=== PATIENT | male | born 1955 | race Caucasian/White ===

== ENCOUNTER 2016-06-18 09:29 | Inpatient (IN) | payer OTHER, MEDICARE ==
[2016-06-18] VITALS (20 sets, daily range): BP systolic 99–158; BP diastolic 50–92; PULSE 60–104; RESP 17–22; TEMP 97.8–98.1; O2SAT 95–100
[~2016-06-18] VITALS: Ht 190.5 cm; Wt 86.2 kg
[~2016-06-18 09:29] MED LIST: ATOR80TA PO; CYCL-36 PO; EZET10 PO; METO25CR PO; ST JTAB PO; ULTR50TA PO; VIAG100T PO
[2016-06-18] MEDS ORDERED: SODIUM CHLOR 0.9% 1000 ML INJ 1,000 ML IV ONE (09:39)
[2016-06-18] MEDS ORDERED: HEPARIN SODIUM - IV 10,000 UNITS/10 ML VIAL IV STA (09:39)
[2016-06-18] MEDS: ASPIRIN 81 MG CHEW TAB PO STA ×2 (09:39→09:47)
[2016-06-18] MEDS ORDERED: NITROGLYCERIN 0.4 MG SL 25 TABS/BTL SL STA (09:39)
[2016-06-18] MEDS ORDERED: ASPIRIN 81 MG CHEW TAB PO STA (09:39)
[2016-06-18] MEDS ORDERED: ASPIRIN 81 MG CHEW TAB ONE (09:41)
[2016-06-18] MEDS ORDERED: ONDANSETRON HCL 4 MG/2 ML VIAL ONE (09:41)
[2016-06-18] MEDS ORDERED: NITROGLYCERIN-DEXTROSE INJ 250 ML IV SCH (09:45)
[2016-06-18] MEDS ORDERED: SODIUM CHLORIDE 0.9% FLUSH 5 ML FLUSH IVF PRN ×2 (09:45→11:15)
[2016-06-18] MEDS ORDERED: MORPHINE SULFATE 4 MG/ML INJ IV PUSH ONE (09:45)
[2016-06-18] MEDS ORDERED: ONDANSETRON HCL 4 MG/2 ML VIAL IV PUSH ONE (09:45)
[2016-06-18] MEDS ORDERED: HEPARIN-NS/PF INJ 500 ML ONE (09:53)
[2016-06-18 09:55] LABS: I-STAT POTASSIUM 4.2 MMOL/L (3.5-4.9)
--- NOTE | 2016-06-18 09:56 | PD ---
HPI Chief Complaint: Chest Pain Time Seen by Provider: 09:39 Travel History International Travel<30 days: No Contact w/Intl Traveler<30days: No Traveled to known affect area: No History of Present Illness HPI 61-year-old male came to the emergency room with history of chest pain radiating to his back that started last night. Patient says he moved over the weekend and thought he had pulled a muscle. Last night he broke into a cold sweat. No history of vomiting or diarrhea. He looks quite uncomfortable. Patient has history of coronary artery disease in the past. He says he had a cardiac catheter done last year June in [place] which was normal. Patient is a smoker currently. [facility] Past Medical History Narrative Medical List of his past medical history as reviewed from the nursing note. Heart Rhythm Problems: No Cancer: No Cardiovascular Problems: Yes High Cholesterol: Yes Chest Pain: No Congestive Heart Failure: No Coronary Artery Disease: Yes Diminished Hearing: No Endocrine: No Genitourinary: No Immune Disorder: No Musculoskeletal: No Neurologic: No Psychiatric: No Reproductive: No Respiratory: No Past Surgical History Cardiac Surgery: Yes (OPEN HEART 99) Joint Replacement: Yes (LEFT ANKLE REPLACEMENT) Social History Alcohol Use: Yes (DAILY) Tobacco Use: Yes (2 PACK) Substance Use: No Allergies-Medications (Allergen,Severity, Reaction): Coded Allergies: No Known Allergies (Unverified , 06/18/16) Comments No known drug allergies. Reported Meds & Prescriptions Reported Meds & Active Scripts Active Reported Zetia (Ezetimibe) 10 Mg Tab 10 Mg PO DAILY Flexeril (Cyclobenzaprine HCl) 10 Mg Tab 10 Mg PO TID PRN Atorvastatin (Atorvastatin Calcium) 80 Mg Tab 80 Mg PO HS Ultram (Tramadol HCl) 50 Mg Tab 50 Mg PO TID PRN Viagra (Sildenafil Citrate) 100 Mg Tab 100 Mg PO DAILY PRN Aleve (Naproxen Sodium) 220 Mg Tab 220 Mg PO DIRECTED PRN Aspirin 81 Mg Tabdr 81 Mg PO DAILY Narrative Medication List of his home medications reviewed from the nursing note. Review of Systems Except as stated in HPI: all other systems reviewed are Neg Physical Exam Narrative GENERAL: Awake, alert, significant distress SKIN: Warm and dry. HEAD: Atraumatic. Normocephalic. EYES: Pupils equal and round. No scleral icterus. No injection or drainage. ENT: No nasal bleeding or discharge. Mucous membranes pink and moist. NECK: Trachea midline. No JVD. CARDIOVASCULAR: Regular rate and rhythm. No murmur appreciated. RESPIRATORY: No accessory muscle use. Clear to auscultation. Breath sounds equal bilaterally. GASTROINTESTINAL: Abdomen soft, non-tender, nondistended. Hepatic and splenic margins not palpable. MUSCULOSKELETAL: No obvious deformities. No clubbing. No cyanosis. No edema. NEUROLOGICAL: Awake and alert. No obvious cranial nerve deficits. Motor grossly within normal limits. Normal speech. PSYCHIATRIC: Appropriate mood and affect; insight and judgment normal. Data Data Last Documented VS Vital Signs Date Time Temp Pulse Resp B/P Pulse Ox O2 Delivery O2 Flow Rate FiO2 06/18/16 09:49 70 20 156/88 100 Room Air 06/18/16 09:49 97.8 06/18/16 09:40 2.0 Orders Troponin I (06/18/16 09:39) Ckmb (Isoenzyme) Profile (06/18/16 09:39) Complete Blood Count With Diff (06/18/16 09:39) I-Stat Profile (06/18/16 09:39) I-Stat Creatinine (06/18/16 09:39) Calcium (06/18/16 09:39) Magnesium (Mg) (06/18/16 09:39) Prothrombin Time / Inr (Pt) (06/18/16 09:39) Act Partial Throm Time (Ptt) (06/18/16 09:39) B-Type Natriuretic Peptide (06/18/16 09:39) Chest, Single Ap (06/18/16 09:39) Electrocardiogram (06/18/16 09:39) Oxygen Administration (06/18/16 09:39) Iv Access Insert/Monitor (06/18/16 09:39) Oximetry (06/18/16 09:39) Sodium Chlor 0.9% 1000 Ml Inj (Ns 1000 M (06/18/16 09:39) Sodium Chloride 0.9% Flush (Ns Flush) (06/18/16 09:45) Aspirin Chew (Aspirin Chew) (06/18/16 09:39) Nitroglycerin Sl (Nitrostat Sl) (06/18/16 09:39) Nitroglycerin-Dextrose Inj (Nitroglyceri (06/18/16 09:45) Heparin Inj (Heparin Inj) (06/18/16 09:39) Aspirin Chew (Aspirin Chew) (06/18/16 09:39) Morphine Inj (Morphine Inj) (06/18/16 09:45) Ondansetron Inj (Zofran Inj) (06/18/16 09:45) Ondansetron Inj (Zofran Inj) (06/18/16 09:41) Aspirin Chew (Aspirin Chew) (06/18/16 09:41) Admit Order (Ed Use Only) (06/18/16 09:47) CKMB (06/18/16 09:42) CKMB% (06/18/16 09:42) Labs Laboratory Tests Test 06/18/16 09:42 White Blood Count 9.6 TH/MM3 Red Blood Count 4.59 MIL/MM3 Hemoglobin 16.1 GM/DL Bedside Hemoglobin 16.3 G/DL Hematocrit 47.0 % Bedside Hematocrit 48.0 % Mean Corpuscular Volume 102.3 FL Mean Corpuscular Hemoglobin 35.1 PG Mean Corpuscular Hemoglobin 34.3 % Concent Red Cell Distribution Width 14.1 % Platelet Count 237 TH/MM3 Mean Platelet Volume 8.4 FL Neutrophils (%) (Auto) 87.3 % Lymphocytes (%) (Auto) 8.8 % Monocytes (%) (Auto) 2.8 % Eosinophils (%) (Auto) 0.2 % Basophils (%) (Auto) 0.9 % Neutrophils # (Auto) 8.4 TH/MM3 Lymphocytes # (Auto) 0.8 TH/MM3 Monocytes # (Auto) 0.3 TH/MM3 Eosinophils # (Auto) 0.0 TH/MM3 Basophils # (Auto) 0.1 TH/MM3 CBC Comment DIFF FINAL Differential Comment Prothrombin Time 10.9 SEC Prothromb Time International 1.0 RATIO Ratio Activated Partial 27.3 SEC Thromboplast Time Bedside Sodium 139 MMOL/L Bedside Potassium 4.2 MMOL/L Bedside Chloride 100 MMOL/L Bedside Blood Urea Nitrogen 10 MG/DL Bedside Creatinine 0.8 MG/DL Bedside Glucose 122 MG/DL Calcium Level 8.8 MG/DL Magnesium Level 1.8 MG/DL Total Creatine Kinase 339 U/L Creatine Kinase MB 21.7 NG/ML Creatine Kinase MB % 6.4 % Troponin I 2.71 NG/ML B-Type Natriuretic Peptide 60 PG/ML MDM Medical Decision Making Medical Screen Exam Complete: Yes Emergency Medical Condition: Yes Medical Record Reviewed: Yes Interpretation(s) Normal sinus rhythm, normal axis, inferior ST elevations, reciprocal depressions in 1 and aVL. Heart rate of 65 bpm. Differential Diagnosis STEMI Narrative Course 9:55 AM patient was given 5000 heparin bolus, 2 baby aspirins and morphine. Dr. Madrigal came in to see the patient as soon as STEMI alert was called and I spoke with him. Patient is being taken to the catheter lab for emergent cardiac catheterization. He remains hemodynamically stable currently. Patient is on Viagra daily and hence nitroglycerin was withheld. Procedures EKG Prior to Arrival: Yes Physician Communication Physician Communication Dr. aMdrigal Diagnosis Primary Impression: ST elevation myocardial infarction (STEMI) of inferior wall Additional Impression: ST elevation myocardial infarction (STEMI) of true posterior wall Admitting Information Admitting Physician Requests: Admit Scripts Spironolactone (Aldactone)25 Mg Tab25 Mg PO DAILY #30 TAB Ref 0 Prov:Lady Ramirez MD 06/20/16 Ipratropium HFA 12.9 GM Inh (Atrovent HFA 12.9 GM Inh)17 Mcg/Act Aer2 Puff INH TID #1 INHALER Ref 0 Prov:Lady Ramirez MD 06/20/16 Albuterol 18 GM Inh (Ventolin Hfa 18 GM Inh)90 Mcg/Act Aer2 Puff INH Q4-6H PRN ( SHORTNESS OF BREATH) #1 INHALER Ref 0 Prov:Lady Ramirez MD 06/20/16 Budesonide-Formoterol Inh (Symbicort Inh)160-4.5 Mcg/Act Aero1 Puff INH Q12HR # 1 INHALER Ref 0 Prov:Lady Ramirez MD 06/20/16 Azithromycin (Zithromax Z-Italo)250 Mg [id number] Mg PO DIRECTED #1 DSPK Ref 0 500 MG (2 tabs) day 1, then 1 tab days 2-5. Prov:Lady Ramirez MD 06/20/16 Lorazepam (Ativan)0.5 Mg Tab0.5 Mg PO BID PRN (ANXIETY AND/OR AGITATION) #10 TAB Ref 0 Prov:Lady Ramirez MD 06/19/16 Lisinopril 5 Mg Tab5 Mg PO DAILY #30 TAB Prov:Lady Ramirez MD 06/19/16 Metoprolol Tartrate 25 Mg Tab12.5 Mg PO BID #60 TAB Prov:Lady Ramirez MD 06/19/16 Ticagrelor (Brilinta)90 Mg Tab90 Mg PO BID #60 TAB Prov:Lady Ramirez MD 06/19/16 Denis Thorpe MD Jun 18, 2016 09:56
[2016-06-18 09:57] LABS: AUTOMATED NEUTROPHIL # 8.4 TH/MM3 (1.8-7.7); BASOPHIL # 0.1 TH/MM3 (0-0.2); BASOPHIL % 0.9 % (0.0-2.0); EOSINOPHIL % 0.2 % (0.0-4.0); HEMO FLAGS DIFF FINAL; LYMPH % 8.8 % (9.0-44.0); LYMPHOCYTE # 0.8 TH/MM3 (1.0-4.8); MEAN CELL VOLUME 102.3 FL (80.0-100.0); MEAN CORPUSCULAR HEMOGLOBIN 35.1 PG (27.0-34.0); MEAN CORPUSCULAR HGB CONC 34.3 % (32.0-36.0); MONO % 2.8 % (0.0-8.0); NEUT % 87.3 % (16.0-70.0); PLATELET COUNT 237 TH/MM3 (150-450); RED BLOOD COUNT 4.59 MIL/MM3 (4.50-5.90); RED CELL DISTRIBUTION WIDTH 14.1 % (11.6-17.2); WHITE BLOOD COUNT 9.6 TH/MM3 (4.0-11.0)
--- NOTE | 2016-06-18 10:04 | RADRPT ---
EXAM DATE/TIME: 06/18/2016 09:49 [place] COMPARISON: No previous studies available for comparison. INDICATIONS: Chest pains with shortness of breath. MEDICAL HISTORY: Myocardial infarction. SURGICAL HISTORY: CABG. Coronary artery stent. ENCOUNTER: Initial ACUITY: 1 day PAIN SCORE: 9/10 LOCATION: Bilateral chest FINDINGS: Median sternotomy wires are noted status post cardiac surgery. The heart is normal. The pulmonary v ascular pattern is normal. The lungs are clear. CONCLUSION: 1. No acute cardiopulmonary disease. Rohit Alvarez MD on June 18, 2016 at 9:58 Board Certified Radiologist. This report was verified electronically.
[2016-06-18 10:07] LABS: APTT (PATIENT) 27.3 SEC (24.3-30.1); PROTHROMBIN TIME - PATIENT 10.9 SEC (9.8-11.6)
[2016-06-18] MEDS ORDERED: MIDAZOLAM HCL 2 MG/2 ML VIAL ONE (10:09)
[2016-06-18 10:14] LABS: MAGNESIUM 1.8 MG/DL (1.5-2.5)
[2016-06-18] MEDS ORDERED: ULTR50TA5 PO (10:14)
[2016-06-18] MEDS ORDERED: ASPI1TAB69 PO (10:14)
[2016-06-18] MEDS ORDERED: NAPR220T95 PO (10:14)
[2016-06-18] MEDS ORDERED: ATOR1TAB18 PO (10:14)
[2016-06-18] MEDS ORDERED: VIAG100T PO (10:14)
[2016-06-18] MEDS ORDERED: CYCL1TAB29 PO (10:14)
[2016-06-18] MEDS ORDERED: ZETI10TA5 PO (10:14)
[2016-06-18] MEDS ORDERED: METO25TA6 PO (10:14)
[2016-06-18] MEDS ORDERED: HEPARIN SODIUM - IV 10,000 UNITS/10 ML VIAL ONE (10:21)
[2016-06-18 10:33] LABS: CKMB 21.7 NG/ML (0.5-3.6)
--- NOTE | 2016-06-18 10:37 | MB ---
cc: GIDEON POLO MD DATE OF 1955. DATE OF CONSULTATION June 18, [address] elevation ND. HISTORY OF PRESENT ILLNESS A 61-year-old male with past medical history significant for alcohol abuse, smoker, CAD status post CABG in 1998, CLAY to the LAD, who presented to the hospital with chest pain radiating to his back for days and EKG showing inferior STEMI. Reports that he is having some chest pain for a couple of days and thought he pulled a muscle. However, yesterday he was broke out in sweats. Denies nausea or vomiting, and this chest pain became worse. It was associated with some shortness of breath and weakness. He denies fevers, chills, nausea, vomiting, diarrhea, constipation, bleeding issues or noncompliant with medications. REVIEW OF SYSTEMS Negative except for what is mentioned in the HPI. PAST MEDICAL/SURGICAL HISTORY 1. CAD status post bypass surgery in 1998. 2. Left ankle replacement. FAMILY HISTORY Noncontributory. SOCIAL HISTORY He is drinker and he is a smoker. No illicit drug use. ALLERGIES No known drug allergies. HOME MEDICATIONS 1. Metoprolol. 2. Ultram. 3. Flexeril. 4. Atorvastatin. 5. Zetia. 6. Viagra. 7. Aspirin 81 mg. PHYSICAL EXAMINATION Vital Signs: Temperature of 97.8, respiratory rate of 20, heart rate of 70, blood pressure 166/88 and pulse oximetry 100% on room air. General: He is awake, alert, oriented and having chest pain. Neck: No JVD, no carotid bruits. Heart: Normal S1 and S2. Regular rate and rhythm. No murmurs, rubs or gallops. Lungs: Clear to auscultation bilaterally. No wheezes or rhonchi, no rales. Abdomen: Soft, nontender, nondistended. Positive bowel sounds. Extremities: No cyanosis, no edema and pulses throughout. LABORATORY DATA Hemoglobin of 16, platelet count of 237. INR is pending. Chemistries show a sodium of 139, potassium 4.2, chloride 100, BUN of 10 and creatinine of 0.8. Troponins are pending as well as BNP. CHEST X-RAY Shows a mid-sternotomy and no acute cardiopulmonary process. EKG Shows sinus rhythm with ST elevation in leads II, III and aVF suggesting injury with reciprocal changes in V2 and V1. ASSESSMENT AND PLAN A 61-year-old male with known coronary artery disease, presented to the emergency department with STEMI. He complains currently still with chest pain. He remains hemodynamically stable. He was started on heparin drip in the emergency department and given aspirin. Recommendation will be to take him immediately to the cardiac cardiac cath rn for invasive management of his STEMI, primary PCI. The risks and benefits of left heart cath and intervention has been explained to the patient including but not limited to stroke and renal failure, dissection, neurovascular trauma, emergent bypass surgery and the patient is willing to proceed. Thank you for the opportunity to participate in the care of this patient. We will follow with you. Further therapy to determined. MD MJ Cam/SSB /10:04 AM /10:28 AM MTDEwa
[2016-06-18] MEDS ORDERED: TICAGRELOR 90 MG TAB PO ONE ×2 (10:47→11:15)
[2016-06-18] MEDS ORDERED: PHENYLEPH/NS 1000 MCG/10 ML SYR ONE (10:53)
[2016-06-18] MEDS ORDERED: SODIUM CHLOR 0.9% 1000 ML INJ 1,000 ML IV SCH (11:02)
[2016-06-18] MEDS ORDERED: ATROPINE SULFATE 1 MG/ML VIAL IV PRN (11:15)
[2016-06-18] MEDS ORDERED: ONDANSETRON HCL 4 MG/2 ML VIAL IV PRN (11:15)
[2016-06-18] MEDS ORDERED: MISC INFORMATION XX ONE (11:15)
[2016-06-18] MEDS ORDERED: PILL SPLITTER OTHER PRN (11:30)
--- NOTE | 2016-06-18 12:09 | MA ---
cc: GIDEON POLO DATE: 06/18/2016 PROCEDURES PERFORMED 1. Left heart catheterization. 2. Selective right and left coronary angiography. 3. CLAY angiography. 4. Successful PCI to mid right coronary artery. INDICATION STEMI. APPROACH Right transfemoral. PROCEDURE DESCRIPTION Consent signed. The patient was brought into the cardiac laboratory analyst in a fasting state. Using 1% lidocaine for local anesthesia and a micropuncture kit, a 6 Citizen [place] sheath was inserted into the right common femoral artery. Right common femoral artery angiography was performed to confirm position of the sheath. Selective CLAY and LAD angiography was performed with a SOUMYA catheter with 5- Citizen [place] JL4 and SOUMYA diagnostic catheters. Angiography was performed in multiple views. The vessels were patent and collaterals were going to the right coronary artery. Then selective right coronary angiography was performed with a JR4 guide showing 100% thrombotic occlusion of the mid right coronary artery. The vessel was wire with a Choice PT extra-support wire anchored distally. This was followed by pre-dilation of the lesion with a 2.5 x 12 balloon and aspiration thrombectomy with successful reperfusion of the vessel and BROOKS-III flow. Then we deployed a 3.0 x 28 drug-eluting stent followed by 3.5 x 8 drug- eluting stent in the proximal portion. The stents were post dilated with a noncompliant 3.5 x 15 balloon to high atmospheres. Final angiographic views revealed good stent apposition and expansion with BROOKS- III flow and zero residual stenosis. The patient tolerated the procedure well without complications. Estimated blood loss less than 50 cc. Total contrast used 100 cc. The right groin access site was closed with a Perclose device. RESULTS HEMODYNAMICS The left ventricular pressure was 151/5 with an LVEDP of 29. The aortic pressure was 151/80 with a mean of 102. There was no gradient on pullback from the left ventricle to the aorta. CORONARY ANGIOGRAPHY 1. Left Main: The patient had separate ostia of the left circumflex and the LAD. 2. The left circumflex artery is diffusely diseased and small, however, has BROOKS -III flow and nonobstructive coronary artery disease. There is a prominent OM1 and a small OM2 which ae patent with BROOKS 3 flow. 3. The LAD has a 100% occlusion in its midportion and is filling distally by the CLAY to the LAD. The first diagonal is patent. 4. The CLAY to the LAD is patent, has BROOKS-III flow touching the LAD in its midsegment. 5. The right coronary artery is a dominant vessel. It is 100% occluded in its midsegment, thrombotic occlusion. CONCLUSIONS 1. STEMI, culprit lesion right coronary artery. 2. Successful percutaneous coronary intervention / drug-eluting stent to mid right coronary artery. 3. Elevated LVEDP. 4. Patent CLAY to LAD RECOMMENDATIONS 1. Dual-antiplatelet agent with aspirin and Brilinta. 2. Optimize aggressive medical management for CAD which includes statin, ES inhibitor, beta avila and long-acting nitrate. 3. Lifestyle changes. The patient should stop smoking and decrease alcohol intake. 4. Groin site care and post-cath care. 5. 2 Decho before discharge to assess LV function MD MJ Cam/LUIS ARMANDO /11:08 AM /11:50 AM JOANN
--- NOTE | 2016-06-18 14:20 | EKG ---
Date Performed: 06/18/2016 Time Performed: 09:37:24 PTAGE: 61 years EKG: Sinus rhythm WITH MARKED SINUS ARRHYTHMIA BORDERLINE RIGHT AXIS DEVIATION MODERATE INTRAVENTRICULAR CONDUCTION DE LAY MARKED ST ELEVATION, CONSIDER INFERIOR INJURY ACUTE [place] Compared to PREVIOUS TRACING inferior/posterior injury pattern is now present PREVIOUS TRACIN12/08 22.24 DOCTOR: Rehan Fairchild Interpretating Date/Time 06/18/2016 14:18:15
[2016-06-18] MEDS ORDERED: ACETAMINOPHEN 325 MG TAB PO PRN (15:15)
[2016-06-18] MEDS: ATORVASTATIN 80 MG TAB PO SCH (22:23)
[2016-06-18] MEDS: METOPROLOL TARTRATE 25 MG TAB PO SCH (22:24)
[2016-06-18] MEDS: SODIUM CHLORIDE 0.9% FLUSH 5 ML FLUSH IVF SCH (22:24)
[2016-06-19] VITALS (26 sets, daily range): BP systolic 102–141; BP diastolic 52–72; PULSE 54–80; RESP 14–18; TEMP 97.5–99.2; O2SAT 96–98
[2016-06-19 03:42] LABS: AUTOMATED NEUTROPHIL # 9.7 TH/MM3 (1.8-7.7); BASOPHIL # 0.1 TH/MM3 (0-0.2); EOSINOPHIL # 0.1 TH/MM3 (0-0.4); EOSINOPHIL % 0.6 % (0.0-4.0); HEMATOCRIT 42.3 % (39.0-51.0); HEMO FLAGS DIFF FINAL; LYMPH % 14.3 % (9.0-44.0); LYMPHOCYTE # 1.8 TH/MM3 (1.0-4.8); MEAN CELL VOLUME 102.1 FL (80.0-100.0); MEAN CORPUSCULAR HEMOGLOBIN 34.3 PG (27.0-34.0); MEAN CORPUSCULAR HGB CONC 33.6 % (32.0-36.0); MONO % 8.2 % (0.0-8.0); NEUT % 75.9 % (16.0-70.0); PLATELET COUNT 198 TH/MM3 (150-450); RED BLOOD COUNT 4.15 MIL/MM3 (4.50-5.90); WHITE BLOOD COUNT 12.7 TH/MM3 (4.0-11.0)
[2016-06-19 04:15] LABS: HDL CHOLESTEROL 50.7 MG/DL (40.0-60.0)
[2016-06-19] MEDS: ASPIRIN 81 MG CHEW TAB PO SCH (08:28)
[2016-06-19] MEDS: LISINOPRIL 5 MG TAB PO SCH (08:28)
[2016-06-19] MEDS: METOPROLOL TARTRATE 25 MG TAB PO SCH ×2 (08:29→22:11)
[2016-06-19] MEDS: TICAGRELOR 90 MG TAB PO SCH ×2 (08:29→22:11)
[2016-06-19] MEDS: SODIUM CHLORIDE 0.9% FLUSH 5 ML FLUSH IVF SCH ×2 (08:29→22:11)
[2016-06-19] MEDS ORDERED: RESP: ALBUTEROL 2.5 MG/IPRATROPIUM 0.5 MG NEB (PRN) NEB (09:15)
[2016-06-19] MEDS ORDERED: LISI-519 PO (12:22)
[2016-06-19] MEDS ORDERED: METO25TA3 PO (12:22)
[2016-06-19] MEDS ORDERED: BRIL90TA PO (12:22)
--- NOTE | 2016-06-19 12:22 | HHI.DCPOC ---
Discharge Care Plan Goals to Promote Your Health * To prevent worsening of your condition and complications * To maintain your health at the optimal level Directions to Meet Your Goals Take your medications as prescribed Follow your dietary instruction Follow activity as directed Keep your appointments as scheduled Take your immunizations and boosters as scheduled If your symptoms worsen call your PCP, if no PCP go to Urgent Care Center or Emergency Room Smoking is Dangerous to Your Health. Avoid second hand smoke Call the 24-hour hour crisis hotline for domestic abuse at Lady Ramirez MD Jun 19, 2016 12:22
--- NOTE | 2016-06-19 12:24 | HHI.HP ---
[facility] Unknown Admission Diagnosis acute inferior, posterior wall STEMI Diagnoses: Chief Complaint: chest pain Travel History International Travel<30 Days: No Contact w/Intl Traveler <30 Da: No Traveled to Known Affected Are: No History of Present Illness 61-year-old male came to the emergency room with history of chest pain radiating to his back that started last night. Patient says he moved over the weekend and thought he had pulled a muscle. Last night he broke into a cold sweat. No history of vomiting or diarrhea. He looks quite uncomfortable. Patient has history of coronary artery disease in the past. He says he had a cardiac catheter done last year June in [place] which was normal. Patient is a smoker currently. Patient went for cardiac cath with stent 06/[address] Madrigal. Groin without hematoma he is ambulating in the room without any problems. No chest pain . No sob, n/v/d /c. No tremors. Review of Systems Constitutional: DENIES: Fever, Chills, Change in appetite Endocrine: DENIES: Heat/cold intolerance Eyes: DENIES: Blurred vision, Diplopia, Eye inflammation, Eye pain, Vision loss , Photosensitivity, Double Vision Ears, nose, mouth, throat: DENIES: Tinnitus, Hearing loss, Vertigo, Nasal discharge, Oral lesions, Throat pain, Hoarseness, Ear Pain, Running Nose, Epistaxis, Sinus Pain, Toothache, Odynophagia Respiratory: DENIES: Apneas, Cough, Snoring, Wheezing, Hemoptysis, Sputum production, Shortness of breath Cardiovascular: DENIES: Chest pain, Palpitations, Syncope, Dyspnea on Exertion , PND, Lower Extremity Edema, Orthopnea, Claudication Gastrointestinal: DENIES: Abdominal pain, Black stools, Bloody stools, Constipation, Diarrhea, Nausea, Vomiting, Difficulty Swallowing, Anorexia Musculoskeletal: DENIES: Joint pain, Muscle aches, Stiffness, Joint Swelling, Back pain, Neck pain Integumentary: DENIES: Rash Neurologic: DENIES: Abnormal gait, Headache, Localized weakness, Paresthesias, Seizures, Speech Problems, Tremor, Poor Balance Psychiatric: COMPLAINS OF: Anxiety Past Family Social History Past Medical History HTN Past Surgical History None Reported Medications Last Impressions Chest X-Ray 06/18/16 0939 Signed Impressions: Service Date/Time: Saturday, June 18, 2016 09:49 - CONCLUSION: 1. No acute cardiopulmonary disease. Rohit Alvarez MD Allergies: Coded Allergies: No Known Allergies (Unverified , 06/18/16) Family History Parents healthy Social History Smokes 1 PPD since young age EtOH 2-3 beers every other say No illicit drug use Physical Exam Vital Signs Vital Signs Date Time Temp Pulse Resp B/P Pulse Ox O2 Delivery O2 Flow Rate FiO2 06/19/16 10:00 70 06/19/16 09:00 60 06/19/16 08:00 63 06/19/16 08:00 98.1 63 14 122/71 96 06/19/16 07:00 68 06/19/16 05:00 55 06/19/16 04:00 97.7 58 18 105/72 96 06/19/16 04:00 58 06/19/16 03:00 80 06/19/16 02:00 54 06/19/16 01:00 54 06/19/16 00:00 61 06/18/16 23:45 97.8 73 18 111/59 96 06/18/16 23:00 80 06/18/16 22:00 61 06/18/16 21:00 62 06/18/16 20:00 61 06/18/16 19:05 97.8 60 18 99/50 96 06/18/16 19:00 80 06/18/16 18:00 64 06/18/16 17:00 88 06/18/16 16:17 98.0 62 18 112/66 95 06/18/16 16:00 61 06/18/16 15:00 80 06/18/16 14:00 78 06/18/16 13:00 74 06/18/16 12:45 80 Physical Exam GENERAL: This is a well-nourished, well-developed patient, in no apparent distress. SKIN: No rashes, ecchymoses or lesions. Cool and dry. HEAD: Atraumatic. Normocephalic. No temporal or scalp tenderness. EYES: Pupils equal round and reactive. Extraocular motions intact. No scleral icterus. No injection or drainage. ENT: Nose without bleeding, purulent drainage or septal hematoma. Throat without erythema, tonsillar hypertrophy or exudate. Uvula midline. Airway patent. NECK: Trachea midline. No JVD or lymphadenopathy. Supple, nontender, no meningeal signs. CARDIOVASCULAR: Regular rate and rhythm without murmurs, gallops, or rubs. RESPIRATORY: Clear to auscultation. Breath sounds equal bilaterally. No wheezes , rales, or rhonchi. GASTROINTESTINAL: Abdomen soft, non-tender, nondistended. No hepato-splenomegaly , or palpable masses. No guarding. MUSCULOSKELETAL: Right grioun no hematoma, dressing C/D/I. Extremities without clubbing, cyanosis, or edema. No joint tenderness, effusion, or edema noted. No calf tenderness. Negative Homans sign bilaterally. NEUROLOGICAL: Awake and alert. Cranial nerves II through XII intact. Motor and sensory grossly within normal limits. Five out of 5 muscle strength in all muscle groups. Normal speech. Laboratory Laboratory Tests Test 06/19/16 03:24 White Blood Count 12.7 Red Blood Count 4.15 Hemoglobin 14.2 Hematocrit 42.3 Mean Corpuscular Volume 102.1 Mean Corpuscular Hemoglobin 34.3 Mean Corpuscular Hemoglobin 33.6 Concent Red Cell Distribution Width 14.0 Platelet Count 198 Mean Platelet Volume 8.7 Neutrophils (%) (Auto) 75.9 Lymphocytes (%) (Auto) 14.3 Monocytes (%) (Auto) 8.2 Eosinophils (%) (Auto) 0.6 Basophils (%) (Auto) 1.0 Neutrophils # (Auto) 9.7 Lymphocytes # (Auto) 1.8 Monocytes # (Auto) 1.0 Eosinophils # (Auto) 0.1 Basophils # (Auto) 0.1 CBC Comment DIFF FINAL Differential Comment Triglycerides Level 132 Cholesterol Level 142 LDL Cholesterol 65 HDL Cholesterol 50.7 Cholesterol/HDL Ratio 2.80 Result Diagram: 06/19/16 0324 Imaging Last Impressions Chest X-Ray 06/18/16 0939 Signed Impressions: Service Date/Time: Saturday, June 18, 2016 09:49 - CONCLUSION: 1. No acute cardiopulmonary disease. Rohit Alvarez MD Assessment and Plan Assessment and Plan NSTEMI s/p PCI/ANTONIA to RCA 06/18/[address] Madrigal. Doing well no complaints. Cont DAPT with ASA and Brillinta Cont BB, ACEi, Statin Check 2D ECHO Encourage ambulation and incentive spirometry Cardiology is following Dr Madrigal Tobacco use, EtOH use. Counselled. Ativan for withdrawal symptoms. Chronic medical problems stable. Restart home meds. Code Status full Discussed Condition With patient, nurse Physician Certification 2 Midnight Certification Type: Admission for Inpatient Services Order for Inpatient Services The services are ordered in accordance with Medicare regulations or non- Medicare payer requirements, as applicable. In the case of services not specified as inpatient-only, they are appropriately provided as inpatient services in accordance with the 2-midnight benchmark. Estimated LOS (days): 3 days is the estimated time the patient will need to remain in the hospital, assuming treatment plan goals are met and no additional complications. Post-Hospital Plan: Home Lady Ramirez MD Jun 19, 2016 12:24
[2016-06-19] MEDS ORDERED: LORA-392 PO (12:26)
[2016-06-19] MEDS ORDERED: LORazepam 0.5 MG TAB PO PRN (12:30)
--- NOTE | 2016-06-19 12:52 | PD.CARD.PN ---
Subjective Subjective Remarks no overnight events no complaints ambulating without difficulty Objective Medications Current Medications Medications (Trade) Dose Ordered Sig/Jose Route Start Time Stop Time Status Last Admin (Nitroglycerin-Dextrose Inj) 250 ml @ 0 mls/hr TITRATE IV 06/18/16 09:45 (NS Flush) 2 ml UNSCH PRN IVF 06/18/16 11:15 (NS Flush) 2 ml BID IVF 06/18/16 21:00 06/19/16 08:29 (Aspirin Chew) 81 mg DAILY PO 06/19/16 09:00 06/19/16 08:28 (Brilinta) 90 mg BID PO 06/19/16 09:00 06/19/16 08:29 (Atropine Inj) 0.5 mg UNSCH PRN IV 06/18/16 11:15 (Zofran Inj) 4 mg Q4H PRN IV 06/18/16 11:15 (Lopressor) 12.5 mg BID PO 06/18/16 21:00 06/19/16 08:29 (Prinivil) 5 mg DAILY PO 06/19/16 09:00 06/19/16 08:28 (Lipitor) 80 mg HS PO 06/18/16 21:00 06/18/16 22:23 (Pill Splitter) 1 ea UNSCH PRN OTHER 06/18/16 11:30 (Tylenol) 650 mg Q6H PRN PO 06/18/16 15:15 (Ativan) 0.5 mg Q12H PRN PO 06/19/16 12:30 Vital Signs / I&O Vital Signs Date Time Temp Pulse Resp B/P Pulse Ox O2 Delivery O2 Flow Rate FiO2 06/19/16 10:00 70 06/19/16 09:00 60 06/19/16 08:00 63 06/19/16 08:00 98.1 63 14 122/71 96 06/19/16 07:00 68 06/19/16 05:00 55 06/19/16 04:00 97.7 58 18 105/72 96 06/19/16 04:00 58 06/19/16 03:00 80 06/19/16 02:00 54 06/19/16 01:00 54 06/19/16 00:00 61 06/18/16 23:45 97.8 73 18 111/59 96 06/18/16 23:00 80 06/18/16 22:00 61 06/18/16 21:00 62 06/18/16 20:00 61 06/18/16 19:05 97.8 60 18 99/50 96 06/18/16 19:00 80 06/18/16 18:00 64 06/18/16 17:00 88 06/18/16 16:17 98.0 62 18 112/66 95 06/18/16 16:00 61 06/18/16 15:00 80 06/18/16 14:00 78 06/18/16 13:00 74 I/O 06/18/16 06/18/16 06/18/16 06/19/16 06/19/16 06/19/16 07:00 15:00 23:00 07:00 15:00 23:00 Intake Total 240 ml 480 ml Output Total 400 ml 475 ml Balance -160 ml 5 ml Intake Oral 240 ml 480 ml Output Urine Total 400 ml 475 ml Physical Exam GENERAL: Well-nourished, well-developed patient. SKIN: Warm and dry. HEAD: Normocephalic. EYES: No scleral icterus. No injection or drainage. NECK: Supple, trachea midline. No JVD or lymphadenopathy. CARDIOVASCULAR: Regular rate and rhythm without murmurs, gallops, or rubs. RESPIRATORY: Breath sounds equal bilaterally. No accessory muscle use. GASTROINTESTINAL: Abdomen soft, non-tender, nondistended. EXTREMITIES: No cyanosis, or edema. NEUROLOGICAL: Awake, alert, and oriented x 3. Non-focal. Laboratory Laboratory Tests Test 06/19/16 03:24 White Blood Count 12.7 TH/MM3 Red Blood Count 4.15 MIL/MM3 Hemoglobin 14.2 GM/DL Hematocrit 42.3 % Mean Corpuscular Volume 102.1 FL Mean Corpuscular Hemoglobin 34.3 PG Mean Corpuscular Hemoglobin 33.6 % Concent Red Cell Distribution Width 14.0 % Platelet Count 198 TH/MM3 Mean Platelet Volume 8.7 FL Neutrophils (%) (Auto) 75.9 % Lymphocytes (%) (Auto) 14.3 % Monocytes (%) (Auto) 8.2 % Eosinophils (%) (Auto) 0.6 % Basophils (%) (Auto) 1.0 % Neutrophils # (Auto) 9.7 TH/MM3 Lymphocytes # (Auto) 1.8 TH/MM3 Monocytes # (Auto) 1.0 TH/MM3 Eosinophils # (Auto) 0.1 TH/MM3 Basophils # (Auto) 0.1 TH/MM3 CBC Comment DIFF FINAL Differential Comment Triglycerides Level 132 MG/DL Cholesterol Level 142 MG/DL LDL Cholesterol 65 MG/DL HDL Cholesterol 50.7 MG/DL Cholesterol/HDL Ratio 2.80 RATIO Assessment and Plan Problem List: (1) ST elevation myocardial infarction (STEMI) of inferior wall Assessment and Plan: s/p PCI/ANTONIA to RCA. Doing well no complaints. Afebrile and HD stable Cont DAPT with ASA and Brillinta Cont BB, ACEi, Statin Get 2Decho Encourage ambulation and incentive spirometry (2) Tobacco abuse (3) Hypertension (4) Hx of myocardial infarction Juan Paz MD Jun 19, 2016 12:52
--- NOTE | 2016-06-19 14:00 | EC ---
Study Study Date:06/19/2016 STUDY CONCLUSIONS SUMMARY - Procedure narrative: Transthoracic echocardiography. Image quality was fair. The study was technically limited due to poor acoustic window availability. - Left ventricle: Extremely limited views of the left ventricle. Ejection fraction is at least moderate to severely reduced, probably in the range of 30-35%, but very limited views to determine this. In limited views, the inferior wall appears akinetic, with the rest of the ventricle appearing hypokinetic but inadequate to determine full wall motion abnormalities. Impressions: If concern for overall ejection fraction or wall motion abnormalities, consider other modality. If LV function is below 40, please consider prescribing an ACEI or ARB or document rationale for non-use. PROCEDURE DATA STUDY STATUS: Elective. Procedure: Transthoracic echocardiography. Image quality was fair. The study was technically limited due to poor acoustic window availability. Scanning was performed from the parasternal, apical, and subcostal acoustic windows. Study completion: The patient tolerated the procedure well. Transthoracic echocardiography. M-mode, complete 2D, complete spectral Doppler, and color Doppler. Height: Height: 75in. Weight: Weight: 189.6lb. Body mass index: BMI: 23.7kg/m^2. Body surface area: BSA: 2.15m^2. Patient status: Inpatient. CARDIAC ANATOMY LEFT VENTRICLE: Extremely limited views of the left ventricle. Ejection fraction is at least moderate to severely reduced, probably in the range of 30-35%, but very limited views to determine this. In limited views, the inferior wall appears akinetic, with the rest of the ventricle appearing hypokinetic but inadequate to determine full wall motion abnormalities. AORTIC VALVE: Mildly thickened leaflets. Doppler: There was no stenosis. No significant regurgitation. Valve area: 2cm^2 (Vmax). Indexed valve area: 0.93cm^2/m^2 (Vmax). MITRAL VALVE: The valve appears to be grossly normal. Doppler: There was no evidence for stenosis. No significant regurgitation. PULMONIC VALVE: Not well visualized. Doppler: There was no evidence for stenosis. TRICUSPID VALVE: The valve appears to be grossly normal. Doppler: There was no evidence for stenosis. No significant regurgitation. Patient weight: 189.6lb _Ejection fraction:_ 65-75% _Fractional shortening:_ 32% up to 5Kg 5-11.5Kg 11.6-22.9Kg 23-45Kg 45-57Kg Aortic Root 7-13 <17 13-22 17-27 17-27 LA diam 6-13 <23 24-38 33-47 37-40 RVID 10-17 7-15 7-15 7-18 8-17 LVIDd 12-22 <32 24-38 33-47 37-40 LVPW 2-4 3-6 5-7 6-8 7-8 IVS 2-4 3-6 5-7 6-8 7-8 BASIC MEASUREMENTS ADULT NORMAL Left ventricle LV internal dimension, ED, chordal *57.6 mm 43-52 level, PLAX LV internal dimension, ES, chordal *42.5 mm 23-38 level, PLAX Fractional shortening, chordal level, *26 % >29 PLAX LV posterior wall thickness, ED 8.71 mm IVS/LVPW ratio, ED 1.05 <1.3 Ventricular septum Septal thickness, ED 9.14 mm Aortic valve Leaflet separation 21 mm 15-26 BASIC MEASUREMENTS ADULT NORMAL Aortic valve Leaflet separation 21 mm 15-26 Aorta Root diameter, ED 28 mm 20-37 Left atrium Anterior-posterior dimension, ES *45 mm 19-40 Anterior-posterior dimension index, ES 2.09 cm/m^2 <2.2 LA/aortic root ratio 1.61 DOPPLER MEASUREMENTS ADULT NORMAL Aortic valve Peak velocity, S 124 cm/s Valve area, Vmax 2 cm^2 Valve area index, Vmax 0.93 cm^2/m^2 Mitral valve Peak E-wave velocity 65.6 cm/s Peak A-wave velocity 44.9 cm/s Deceleration time *109 ms 150-230 Peak E/A ratio 1.5 Pulmonic valve Peak velocity, S 115 cm/s LEGEND: Mean values are shown as u=mean value. Asterisk (*) franco values outside specified normal range. Johny Orozco [id number]
[2016-06-19] MEDS: ATORVASTATIN 80 MG TAB PO SCH (22:11)
[2016-06-20] VITALS (17 sets, daily range): BP systolic 110–126; BP diastolic 70–78; PULSE 64–82; RESP 15–18; TEMP 97.4–98.2; O2SAT 98
[2016-06-20] MEDS: SODIUM CHLORIDE 0.9% FLUSH 5 ML FLUSH IVF SCH (09:00)
--- NOTE | 2016-06-20 09:02 | PD.CARD.PN ---
Subjective Subjective Remarks no complaints no overnight events no events on telemetry Objective Medications Current Medications Medications (Trade) Dose Ordered Sig/Jose Route Start Time Stop Time Status Last Admin (Nitroglycerin-Dextrose Inj) 250 ml @ 0 mls/hr TITRATE IV 06/18/16 09:45 (NS Flush) 2 ml UNSCH PRN IVF 06/18/16 11:15 (NS Flush) 2 ml BID IVF 06/18/16 21:00 06/19/16 22:11 (Aspirin Chew) 81 mg DAILY PO 06/19/16 09:00 06/19/16 08:28 (Brilinta) 90 mg BID PO 06/19/16 09:00 06/19/16 22:11 (Atropine Inj) 0.5 mg UNSCH PRN IV 06/18/16 11:15 (Zofran Inj) 4 mg Q4H PRN IV 06/18/16 11:15 (Lopressor) 12.5 mg BID PO 06/18/16 21:00 06/19/16 22:11 (Prinivil) 5 mg DAILY PO 06/19/16 09:00 06/19/16 08:28 (Lipitor) 80 mg HS PO 06/18/16 21:00 06/19/16 22:11 (Pill Splitter) 1 ea UNSCH PRN OTHER 06/18/16 11:30 (Tylenol) 650 mg Q6H PRN PO 06/18/16 15:15 (Ativan) 0.5 mg Q12H PRN PO 06/19/16 12:30 Vital Signs / I&O Vital Signs Date Time Temp Pulse Resp B/P Pulse Ox O2 Delivery O2 Flow Rate FiO2 06/20/16 08:15 82 06/20/16 07:45 80 06/20/16 05:00 64 06/20/16 04:00 64 06/20/16 03:23 98.2 69 15 114/75 98 06/20/16 03:00 64 06/20/16 02:00 64 06/20/16 01:00 64 06/20/16 00:00 64 06/19/16 23:45 98.7 64 15 102/70 98 06/19/16 23:00 66 06/19/16 22:00 74 06/19/16 21:00 76 06/19/16 20:00 74 06/19/16 19:15 98.7 70 15 113/64 98 06/19/16 19:00 62 06/19/16 18:00 64 06/19/16 17:00 70 06/19/16 16:00 77 06/19/16 15:49 99.2 67 15 107/52 97 06/19/16 15:00 61 06/19/16 14:00 63 06/19/16 13:00 65 06/19/16 12:00 61 06/19/16 11:00 97.5 57 15 105/64 96 06/19/16 11:00 66 06/19/16 10:00 70 06/19/16 09:00 60 I/O 06/19/16 06/19/16 06/19/16 06/20/16 06/20/16 06/20/16 07:00 15:00 23:00 07:00 15:00 23:00 Intake Total 480 ml 800 ml 240 ml Output Total 475 ml 1001 ml 375 ml Balance 5 ml -201 ml -135 ml Intake Oral 480 ml 800 ml 240 ml Output Urine Total 475 ml 1000 ml 375 ml Stool Total 1 ml Physical Exam GENERAL: Well-nourished, well-developed patient. SKIN: Warm and dry. HEAD: Normocephalic. EYES: No scleral icterus. No injection or drainage. NECK: Supple, trachea midline. No JVD or lymphadenopathy. CARDIOVASCULAR: Regular rate and rhythm without murmurs, gallops, or rubs. RESPIRATORY: Breath sounds equal bilaterally. No accessory muscle use. GASTROINTESTINAL: Abdomen soft, non-tender, nondistended. EXTREMITIES: No cyanosis, or edema. NEUROLOGICAL: Awake, alert, and oriented x 3. Non-focal. Assessment and Plan Problem List: (1) ST elevation myocardial infarction (STEMI) of inferior wall Assessment and Plan: Cont DAPT with ASA and Brillinta Cont BB, ACEi and statin Life Vest before d/c Stable to be d/c home today (2) Tobacco abuse (3) Hypertension (4) Hx of myocardial infarction Juan Paz MD Jun 20, 2016 09:02
--- NOTE | 2016-06-20 09:04 | HHI.DS ---
Discharge Summary Admission Date Jun 18, 2016 at 09:51 Discharge Date: Jun 20, 2016 Admitting Diagnosis acute inferior, posterior wall STEMI (1) ST elevation myocardial infarction (STEMI) of true posterior wall ICD Code: I21.29 Diagnosis: Principal (2) Hypertension ICD Code: I10 Diagnosis: Principal (3) Hx of myocardial infarction ICD Code: I25.2 Diagnosis: Secondary Procedures cardiac cath s/p PCI/ANTONIA to RCA 06/18/[address] Matt. Brief History - From Admission 61-year-old male came to the emergency room with history of chest pain radiating to his back that started last night. Patient says he moved over the weekend and thought he had pulled a muscle. Last night he broke into a cold sweat. No history of vomiting or diarrhea. He looks quite uncomfortable. Patient has history of coronary artery disease in the past. He says he had a cardiac catheter done last year June in [place] which was normal. Patient is a smoker currently. Patient went for cardiac cath with stent 06/[address] Matt. Groin without hematoma he is ambulating in the room without any problems. No chest pain . No sob, n/v/d /c. No tremors. CBC/BMP: 06/19/16 0324 Significant Findings Laboratory Tests Test 06/18/16 06/19/16 09:42 03:24 Mean Corpuscular Volume 102.3 FL 102.1 FL (80.0-100.0) (80.0-100.0) Mean Corpuscular Hemoglobin 35.1 PG 34.3 PG (27.0-34.0) (27.0-34.0) Neutrophils (%) (Auto) 87.3 % 75.9 % (16.0-70.0) (16.0-70.0) Lymphocytes (%) (Auto) 8.8 % (9.0-44.0) Neutrophils # (Auto) 8.4 TH/MM3 9.7 TH/MM3 (1.8-7.7) (1.8-7.7) Lymphocytes # (Auto) 0.8 TH/MM3 (1.0-4.8) Bedside Glucose 122 MG/DL (60-95) Total Creatine Kinase 339 U/L (39-308) Creatine Kinase MB 21.7 NG/ML (0.5-3.6) Creatine Kinase MB % 6.4 % (0.0-4.0) Troponin I 2.71 NG/ML (0.02-0.05) White Blood Count 12.7 TH/MM3 (4.0-11.0) Red Blood Count 4.15 MIL/MM3 (4.50-5.90) Monocytes (%) (Auto) 8.2 % (0.0-8.0) Monocytes # (Auto) 1.0 TH/MM3 (0-0.9) Imaging Last Impressions Chest X-Ray 06/18/16 0939 Signed Impressions: Service Date/Time: Saturday, June 18, 2016 09:49 - CONCLUSION: 1. No acute cardiopulmonary disease. Rohit Alvarez MD PE at Discharge GENERAL: This is a well-nourished, well-developed patient, in no apparent distress. SKIN: No rashes, ecchymoses or lesions. Cool and dry. HEAD: Atraumatic. Normocephalic. No temporal or scalp tenderness. EYES: Pupils equal round and reactive. Extraocular motions intact. No scleral icterus. No injection or drainage. ENT: Nose without bleeding, purulent drainage or septal hematoma. Throat without erythema, tonsillar hypertrophy or exudate. Uvula midline. Airway patent. NECK: Trachea midline. No JVD or lymphadenopathy. Supple, nontender, no meningeal signs. CARDIOVASCULAR: Regular rate and rhythm without murmurs, gallops, or rubs. RESPIRATORY: Clear to auscultation, however he received nebs. Breath sounds equal bilaterally. No wheezes, rales, or rhonchi. GASTROINTESTINAL: Abdomen soft, non-tender, nondistended. No hepato-splenomegaly , or palpable masses. No guarding. MUSCULOSKELETAL: Right grin no hematoma, dressing C/D/I. Extremities without clubbing, cyanosis, or edema. No joint tenderness, effusion, or edema noted. No calf tenderness. Negative Homans sign bilaterally. NEUROLOGICAL: Awake and alert. Cranial nerves II through XII intact. Motor and sensory grossly within normal limits. Five out of 5 muscle strength in all muscle groups. Normal speech. Pt update on day of discharge Feesl much better/NO chest pain overnight. Ambulated in the room. Groin without hematoma. Hospital Course NSTEMI s/p PCI/ANTONIA to RCA 06/18/[address] Matt. Doing well no complaints. Cont DAPT with ASA and Brillinta Cont BB, ACEi, Statin Check 2D ECHO reviewed EF 35-40 % needs life vest at DC. Systolic CHF with EF 35-40% without acute exacerbation. Encourage ambulation and incentive spirometry Cardiology is following Dr Matt Patient need life vest per DR matt . Charlotte Alfonso consulted for DC Tobacco use, EtOH use. Counselled. Ativan for withdrawal symptoms. Chronic medical problems stable. Restart home meds. Patient improved. Cleared by cardio for DC. Patient also received life vest at discharge. To follow up as OP with PCP and consultants. Discussed with the patient, nurse, Dr Matt cardiology and case management for DC plan. Pt Condition on Discharge: Fair Discharge Disposition: Discharge Home Discharge Time: > 30 minutes Discharge Instructions DIET: Follow Instructions for: Heart Healthy Diet Activities you can perform: Regular-No Restrictions Follow up Referrals: Cardiology - 2 Weeks with Juan Paz MD PCP Follow-up New Medications: Albuterol 18 GM Inh (Ventolin Hfa 18 GM Inh) 90 Mcg/Act Aer 2 PUFF INH Q4-6H PRN SHORTNESS OF BREATH #1 Ref 0 INHALER Azithromycin (Zithromax Z-Italo) 250 Mg Dspk 250 MG PO DIRECTED 500 MG (2 tabs) day 1, then 1 tab days 2-5. Infection #1 Ref 0 DSPK Budesonide-Formoterol Inh (Symbicort Inh) 160-4.5 Mcg/Act Aero 1 PUFF INH Q12HR #1 Ref 0 INHALER Ipratropium HFA 12.9 GM Inh (Atrovent HFA 12.9 GM Inh) 17 Mcg/Act Aer 2 PUFF INH TID sob/wheezing #1 Ref 0 INHALER Lorazepam (Ativan) 0.5 Mg Tab 0.5 MG PO BID PRN ANXIETY AND/OR AGITATION #10 Ref 0 TAB Lisinopril (Lisinopril) 5 Mg Tab 5 MG PO DAILY Blood Pressure Management #30 TAB Metoprolol Tartrate (Metoprolol Tartrate) 25 Mg Tab 12.5 MG PO BID Blood Pressure Management #60 TAB Ticagrelor (Brilinta) 90 Mg Tab 90 MG PO BID Blood Clot Prevention #60 TAB Continued Medications: Aspirin (Aspirin) 81 Mg Tabdr 81 MG PO DAILY TAB Atorvastatin (Atorvastatin) 80 Mg Tab 80 MG PO HS Cholesterol Management #30 Ref 0 TAB Cyclobenzaprine (Flexeril) 10 Mg Tab 10 MG PO TID PRN SPASM #90 Ref 0 TAB Ezetimibe (Zetia) 10 Mg Tab 10 MG PO DAILY #30 Ref 0 TAB Naproxen Sodium (Aleve) 220 Mg Tab 220 MG PO DIRECTED PRN PAIN SCALE 1 TO 10 Ref 0 TAB Sildenafil (Viagra) 100 Mg Tab 100 MG PO DAILY PRN ERECTILE DYSFUNCTION Ref 0 TAB Tramadol (Ultram) 50 Mg Tab 50 MG PO TID PRN PAIN Ref 0 TAB Discontinued Medications: Metoprolol Succinate ER 24 HR (Metoprolol Succinate ER 24 HR) 25 Mg Tab Unknown Dose PO DAILY #30 Ref 0 TAB Lady Ramirez MD Jun 20, 2016 09:04
[2016-06-20] MEDS ORDERED: VENTAER INH (09:06)
[2016-06-20] MEDS ORDERED: SYMB160A INH (09:06)
[2016-06-20] MEDS ORDERED: ZITHTAB PO (09:06)
[2016-06-20] MEDS ORDERED: IPRA17I INH (09:06)
[2016-06-20] MEDS: ASPIRIN 81 MG CHEW TAB PO SCH (09:25)
[2016-06-20] MEDS: LISINOPRIL 5 MG TAB PO SCH (09:26)
[2016-06-20] MEDS: METOPROLOL TARTRATE 25 MG TAB PO SCH (09:26)
[2016-06-20] MEDS: TICAGRELOR 90 MG TAB PO SCH (09:27)
--- NOTE | 2016-06-20 14:29 | HHI.PR ---
Subjective Remarks Seen earlier today. No cp, sob, n/v/d/c. Ambulating in the room. Objective Vitals Vital Signs Date Time Temp Pulse Resp B/P Pulse Ox O2 Delivery O2 Flow Rate FiO2 06/20/16 14:02 72 06/20/16 12:31 70 06/20/16 11:26 97.6 76 18 110/74 98 06/20/16 11:24 76 06/20/16 10:03 72 06/20/16 10:02 98.0 72 18 110/70 98 06/20/16 08:15 82 06/20/16 07:45 80 06/20/16 05:00 64 06/20/16 04:00 64 06/20/16 03:23 98.2 69 15 114/75 98 06/20/16 03:00 64 06/20/16 02:00 64 06/20/16 01:00 64 06/20/16 00:00 64 06/19/16 23:45 98.7 64 15 102/70 98 06/19/16 23:00 66 06/19/16 22:00 74 06/19/16 21:00 76 06/19/16 20:00 74 06/19/16 19:15 98.7 70 15 113/64 98 06/19/16 19:00 62 06/19/16 18:00 64 06/19/16 17:00 70 06/19/16 16:00 77 06/19/16 15:49 99.2 67 15 107/52 97 06/19/16 15:00 61 I/O 06/19/16 06/19/16 06/19/16 06/20/16 06/20/16 06/20/16 07:00 15:00 23:00 07:00 15:00 23:00 Intake Total 480 ml 800 ml 240 ml Output Total 475 ml 1001 ml 375 ml Balance 5 ml -201 ml -135 ml Intake Oral 480 ml 800 ml 240 ml Output Urine Total 475 ml 1000 ml 375 ml Stool Total 1 ml Result Diagram: 06/19/16 0324 Imaging Last Impressions Chest X-Ray 06/18/16 0939 Signed Impressions: Service Date/Time: Saturday, June 18, 2016 09:49 - CONCLUSION: 1. No acute cardiopulmonary disease. Rohit Alvarez MD Objective Remarks GENERAL: This is a well-nourished, well-developed patient, in no apparent distress. SKIN: No rashes, ecchymoses or lesions. Cool and dry. HEAD: Atraumatic. Normocephalic. No temporal or scalp tenderness. EYES: Pupils equal round and reactive. Extraocular motions intact. No scleral icterus. No injection or drainage. ENT: Nose without bleeding, purulent drainage or septal hematoma. Throat without erythema, tonsillar hypertrophy or exudate. Uvula midline. Airway patent. NECK: Trachea midline. No JVD or lymphadenopathy. Supple, nontender, no meningeal signs. CARDIOVASCULAR: Regular rate and rhythm without murmurs, gallops, or rubs. RESPIRATORY: Clear to auscultation, however he received nebs. Breath sounds equal bilaterally. No wheezes, rales, or rhonchi. GASTROINTESTINAL: Abdomen soft, non-tender, nondistended. No hepato-splenomegaly , or palpable masses. No guarding. MUSCULOSKELETAL: Right grin no hematoma, dressing C/D/I. Extremities without clubbing, cyanosis, or edema. No joint tenderness, effusion, or edema noted. No calf tenderness. Negative Homans sign bilaterally. NEUROLOGICAL: Awake and alert. Cranial nerves II through XII intact. Motor and sensory grossly within normal limits. Five out of 5 muscle strength in all muscle groups. Normal speech. A/P Assessment and Plan NSTEMI s/p PCI/ANTONIA to RCA 06/18/[address] Matt. Doing well no complaints. Cont DAPT with ASA and Brillinta Cont BB, ACEi, Statin Check 2D ECHO reviewed EF 35-40 % needs life vest at [place]. Systolic CHF with EF 35-40% without acute exacerbation. Encourage ambulation and incentive spirometry Cardiology is following Dr Matt Patient need life vest per DR matt . Charlotte Alfonso consulted for DC Tobacco use, EtOH use. Counselled. Ativan for withdrawal symptoms. Chronic medical problems stable. Restart home meds. DVT ppx SCD/TEDs ambulation Lady Ramirez MD Jun 20, 2016 14:29
[2016-06-20] MEDS ORDERED: SPIR25 PO (14:48)
[2016-08-05] MEDS ORDERED: LOVA10TA PO (16:01)
[2016-08-05] MEDS ORDERED: BRIL90TA PO (16:01)
[2016-08-07] MEDS ORDERED: ERGO1CAP10 PO (10:52)
== END 2016-06-20 16:45 | disposition home or self-care (01) | DRG 247 ==
LOC: NEPC 09:29 → NEDA 09:51 → HCIS 11:15
PROVIDERS: ADMIT Hospitalist; ATTEND Hospitalist
PROC: 027035Z Dilation of Coronary Artery, One Artery with Two Drug-eluting Intraluminal Devices, Percutaneous Approach (ICD-10-PCS; principal; 2016-06-18)
PROC: 4A023N7 Measurement of Cardiac Sampling and Pressure, Left Heart, Percutaneous Approach (ICD-10-PCS; 2016-06-18)
PROC: B2131ZZ Fluoroscopy of Multiple Coronary Artery Bypass Grafts using Low Osmolar Contrast (ICD-10-PCS; 2016-06-18)
PROC: B2181ZZ Fluoroscopy of Left Internal Mammary Bypass Graft using Low Osmolar Contrast (ICD-10-PCS; 2016-06-18)
PROC: B2111ZZ Fluoroscopy of Multiple Coronary Arteries using Low Osmolar Contrast (ICD-10-PCS; 2016-06-18)
PROC: B2151ZZ Fluoroscopy of Left Heart using Low Osmolar Contrast (ICD-10-PCS; 2016-06-18)
PROC: B41F1ZZ Fluoroscopy of Right Lower Extremity Arteries using Low Osmolar Contrast (ICD-10-PCS; 2016-06-18)
DX: I21.11 ST elevation (STEMI) myocardial infarction involving right coronary artery (principal); I50.20 Unspecified systolic (congestive) heart failure; I10 Essential (primary) hypertension; I25.119 Atherosclerotic heart disease of native coronary artery with unspecified angina pectoris; Z95.1 Presence of aortocoronary bypass graft; E78.00 Pure hypercholesterolemia, unspecified; F17.210 Nicotine dependence, cigarettes, uncomplicated; F10.10 Alcohol abuse, uncomplicated; Z91.19 Patient's noncompliance with other medical treatment and regimen; I25.2 Old myocardial infarction
CPT/HCPCS: 71010; 80061; 82310; 82435; 82550; 82552; 82565; 82947; 83735; 83880; 84132; 84295; 84484; 84520; 85002; 85025; 85610; 85730; 92941; 93005; 93306; 93454; 94664; 96374; 96375; C1725; C1760; C1769; C1874; C1887; C1893; G0269; J1644; J2250; J2270; J2370; J2405; J3010; J7030

== ENCOUNTER 2016-08-05 14:26 | Emergency (ER) | payer OTHER ==
[~2016-08-05] VITALS: Ht 188 cm; Wt 84.5 kg
[~2016-08-05 14:26] MED LIST changes: +ASPI1TAB69 PO; +ATOR1TAB18 PO; -ATOR80TA PO; +BRIL90TA PO; -CYCL-36 PO; +CYCL1TAB29 PO; -EZET10 PO; +IPRA17I INH; +LISI-519 PO; +LORA-392 PO; -METO25CR PO; +METO25TA3 PO; +NAPR220T95 PO; +SPIR25 PO; -ST JTAB PO; +SYMB160A INH; -ULTR50TA PO; +ULTR50TA5 PO; +VENTAER INH; +ZETI10TA5 PO; +ZITHTAB PO
[2016-08-05 14:28] VITALS: BP 147/80; PULSE 73; RESP 15; TEMP 98.2; O2SAT 96
--- NOTE | 2016-08-05 15:07 | PD ---
HPI Chief Complaint: General Weakness Time Seen by Provider: 14:50 Travel History International Travel<30 days: No Contact w/Intl Traveler<30days: No Traveled to known affect area: No History of Present Illness HPI 61-year-old male presents for evaluation of dizziness, nausea, headaches. The patient was admitted here on June 18 for STEMI. He underwent cardiac catheterization and stenting for a right coronary artery 100% occlusion. The patient was discharged on June 20. The patient reports that ever since being discharged she has had a decreased appetite, not eating very much. He is also had daily bitemporal headaches which he describes as a pressure which is generally constant. He has also had occasional dizziness, lightheadedness. The patient reports that today he was at [employer] and he became lightheaded and so he came here for evaluation. He denies any episodes of chest pain or shortness of breath. He does note that 2 weeks ago he had a tooth pulled and he was given a few days of hydrocodone based a medication that seemed to help a little bit with his discomfort in the head. He also reports that he quit smoking after his hospitalization. He previously was a 1.5 pack a day smoker. He saw his primary care physician 3 days ago who has ordered a CT of the brain to be done as an outpatient but because symptoms are worsening he came here instead. He has no other complaints. PFSH Past Medical History Heart Rhythm Problems: Yes Cancer: No Cardiovascular Problems: Yes (2 stents) High Cholesterol: Yes Chest Pain: No Congestive Heart Failure: No Coronary Artery Disease: Yes Diminished Hearing: No Endocrine: No Genitourinary: No Immune Disorder: No Musculoskeletal: No Neurologic: No Psychiatric: No Reproductive: No Respiratory: No Past Surgical History Abdominal Surgery: No Cardiac Surgery: Yes (OPEN HEART 99) Ear Surgery: No Endocrine Surgery: No Eye Surgery: No Genitourinary Surgery: No Gynecologic Surgery: No Joint Replacement: Yes (LEFT ANKLE REPLACEMENT) Oral Surgery: No Thoracic Surgery: No Social History Alcohol Use: Yes (DAILY) Tobacco Use: Yes (2 PACK) Substance Use: Yes (WEEKLY MARIJUANA) Allergies-Medications (Allergen,Severity, Reaction): Coded Allergies: No Known Allergies (Unverified , 08/05/16) Reported Meds & Prescriptions Reported Meds & Active Scripts Active Metoprolol Tartrate 25 Mg Tab 12.5 Mg PO BID Reported Brilinta (Ticagrelor) 90 Mg Tab 90 Mg PO BID Lovastatin 10 Mg Tab 10 Mg PO DAILY Viagra (Sildenafil Citrate) 100 Mg Tab 100 Mg PO DAILY PRN Review of Systems Except as stated in HPI: all other systems reviewed are Neg Physical Exam Narrative GENERAL: Well-developed well-nourished male in no acute distress answering questions appropriately SKIN: Warm and dry. HEAD: Atraumatic. Normocephalic. EYES: Pupils equal and round. No scleral icterus. No injection or drainage. ENT: No nasal bleeding or discharge. Mucous membranes pink and moist. NECK: Trachea midline. No JVD. CARDIOVASCULAR: Regular rate and rhythm. No murmur appreciated. RESPIRATORY: No accessory muscle use. Clear to auscultation. Breath sounds equal bilaterally. GASTROINTESTINAL: Abdomen soft, non-tender, nondistended. Hepatic and splenic margins not palpable. MUSCULOSKELETAL: No obvious deformities. No clubbing. No cyanosis. No edema. NEUROLOGICAL: Awake and alert. No obvious cranial nerve deficits. Motor grossly within normal limits. Normal speech. PSYCHIATRIC: Appropriate mood and affect; insight and judgment normal. Data Data Last Documented VS Vital Signs Date Time Temp Pulse Resp B/P Pulse Ox O2 Delivery O2 Flow Rate FiO2 08/05/16 14:28 98.2 73 15 147/80 96 Orders Electrocardiogram (08/05/16 15:02) Basic Metabolic Panel (Bmp) (08/05/16 15:02) Complete Blood Count With Diff (08/05/16 15:02) Magnesium (Mg) (08/05/16 15:02) Ckmb (Isoenzyme) Profile (08/05/16 15:02) Troponin I (08/05/16 15:02) Chest, Single Ap (08/05/16 15:02) Ct Brain W/O Iv Contrast(Rout) (08/05/16 15:02) Ct Cerv Spine W/O Contrast (08/05/16 16:22) Chest, Pa & Lat (08/05/16 16:37) Labs Laboratory Tests Test 08/05/16 15:05 White Blood Count 10.1 TH/MM3 Red Blood Count 4.39 MIL/MM3 Hemoglobin 15.1 GM/DL Hematocrit 44.3 % Mean Corpuscular Volume 101.0 FL Mean Corpuscular Hemoglobin 34.4 PG Mean Corpuscular Hemoglobin 34.1 % Concent Red Cell Distribution Width 13.6 % Platelet Count 364 TH/MM3 Mean Platelet Volume 8.0 FL Neutrophils (%) (Auto) 73.6 % Lymphocytes (%) (Auto) 16.7 % Monocytes (%) (Auto) 7.8 % Eosinophils (%) (Auto) 1.3 % Basophils (%) (Auto) 0.6 % Neutrophils # (Auto) 7.5 TH/MM3 Lymphocytes # (Auto) 1.7 TH/MM3 Monocytes # (Auto) 0.8 TH/MM3 Eosinophils # (Auto) 0.1 TH/MM3 Basophils # (Auto) 0.1 TH/MM3 CBC Comment DIFF FINAL Differential Comment Sodium Level 137 MEQ/L Potassium Level 4.0 MEQ/L Chloride Level 102 MEQ/L Carbon Dioxide Level 24.9 MEQ/L Anion Gap 10 MEQ/L Blood Urea Nitrogen 12 MG/DL Creatinine 0.84 MG/DL Estimat Glomerular Filtration 93 ML/MIN Rate Random Glucose 103 MG/DL Calcium Level 9.8 MG/DL Magnesium Level 2.0 MG/DL Total Creatine Kinase 71 U/L Troponin I 0.03 NG/ML MDM Medical Decision Making Medical Screen Exam Complete: Yes Emergency Medical Condition: Yes Medical Record Reviewed: Yes Differential Diagnosis nicotine withdrawal, dehydration, anemia, electrolyte abnormality, tension headache, sinusitis, arrhythmia Narrative Course 61-year-old male who is admitted for STEMI on June 18 presents with bitemporal headaches, decreased appetite, lightheadedness and dizziness ever since discharge. Of note, the patient was previously a 1.5 pack a day smoker and he quit smoking after his hospitalization. He was also started on brilinta as well as metoprolol, lisinopril upon discharge. The patient was initially seen in triage. Basic lab work, CT of the brain and chest x-ray have been ordered. The patient will be moved to a medical bed when one becomes available. Marques Little Aug 05, 2016 15:07
--- NOTE | 2016-08-05 15:22 | RADRPT ---
EXAM DATE/TIME: 08/05/2016 15:11 [facility] COMPARISON: No previous studies available for comparison. INDICATIONS : Syncope MEDICAL HISTORY : Myocardial infarction. SURGICAL HISTORY : CABG. Coronary artery stent. ENCOUNTER: Initial ACUITY: 1 week PAIN SCORE: 0/10 LOCATION: Bilateral chest FINDINGS: A single view of the chest demonstrates the lungs to be symmetrically aerated without evidence of mas s, infiltrate or effusion. Borderline prominence right hilum. Previous CABG. The cardiomediastinal c ontours are unremarkable. Osseous structures are intact. CONCLUSION: 1. Borderline prominence right hilum. PA and lateral views of the chest are recommended. 2. Status post CABG. 3. No infiltrate seen. Torrey Montalvo MD on August 05, 2016 at 15:19 Board Certified Radiologist. This report was verified electronically.
[2016-08-05 15:47] LABS: AUTOMATED NEUTROPHIL # 7.5 TH/MM3 (1.8-7.7); BASOPHIL # 0.1 TH/MM3 (0-0.2); BASOPHIL % 0.6 % (0.0-2.0); EOSINOPHIL # 0.1 TH/MM3 (0-0.4); EOSINOPHIL % 1.3 % (0.0-4.0); HEMATOCRIT 44.3 % (39.0-51.0); HEMO FLAGS DIFF FINAL; LYMPH % 16.7 % (9.0-44.0); LYMPHOCYTE # 1.7 TH/MM3 (1.0-4.8); MEAN CORPUSCULAR HEMOGLOBIN 34.4 PG (27.0-34.0); MEAN CORPUSCULAR HGB CONC 34.1 % (32.0-36.0); MONO % 7.8 % (0.0-8.0); NEUT % 73.6 % (16.0-70.0); PLATELET COUNT 364 TH/MM3 (150-450); RED BLOOD COUNT 4.39 MIL/MM3 (4.50-5.90); RED CELL DISTRIBUTION WIDTH 13.6 % (11.6-17.2); WHITE BLOOD COUNT 10.1 TH/MM3 (4.0-11.0)
[2016-08-05 16:01] LABS: BICARBONATE 24.9 MEQ/L (21.0-32.0)
[2016-08-05] MEDS ORDERED: ERGO1CAP10 PO (16:01)
[2016-08-05] MEDS ORDERED: LOVA10TA PO ×2 (16:01)
[2016-08-05] MEDS ORDERED: BRIL90TA PO ×2 (16:01)
--- NOTE | 2016-08-05 16:04 | PD ---
Physical Exam Date Seen by Provider: Aug 05, 2016 Time Seen by Provider: 16:03 Narrative This patient was initially evaluated by Marques Little PA-C. Please see his note for details. 61 year old male presents to the ED for evaluation of "few weeks" history of decreased appetite, lightheadedness, dizziness and dull, bitemporal headache. No alleviating or exacerbating factors reported. Patient states that he had an episode of lightheadedness today which prompted him to seek a the ED. He states that he had an outpatient CT of the brain scheduled later this week. GENERAL: Well-nourished, well-developed white male in no acute distress. SKIN: Warm and dry. HEAD: Normocephalic. Atraumatic. EYES: No scleral icterus. No injection or drainage. NECK: Supple, trachea midline. No JVD or lymphadenopathy. No midline posterior tenderness. No limitations to range of motion. CARDIOVASCULAR: Regular rate and rhythm without murmurs, gallops, or rubs. 2+ DP and radial pulses bilaterally. RESPIRATORY: Breath sounds clear and equal bilaterally. No accessory muscle use. GASTROINTESTINAL: Abdomen soft, non-tender, nondistended. Active bowel sounds. MUSCULOSKELETAL: No cyanosis, or edema. NEUROLOGICAL: Awake and alert. Cranial nerves II through XII intact. Motor and sensory grossly within normal limits. 5/5 muscle strength in all muscle groups. Normal speech. BACK: Nontender without obvious deformity. No CVA tenderness. Data Data Last Documented VS Vital Signs Date Time Temp Pulse Resp B/P Pulse Ox O2 Delivery O2 Flow Rate FiO2 08/05/16 18:58 65 20 97 Room Air 08/05/16 18:56 133/73 08/05/16 14:28 98.2 Orders Electrocardiogram (08/05/16 15:02) Basic Metabolic Panel (Bmp) (08/05/16 15:02) Complete Blood Count With Diff (08/05/16 15:02) Magnesium (Mg) (08/05/16 15:02) Ckmb (Isoenzyme) Profile (08/05/16 15:02) Troponin I (08/05/16 15:02) Chest, Single Ap (08/05/16 15:02) Ct Brain W/O Iv Contrast(Rout) (08/05/16 15:02) Ct Cerv Spine W/O Contrast (08/05/16 16:22) Chest, Pa & Lat (08/05/16 16:37) Spine,Cervical-Flex & Ext Only (08/05/16 ) Ketorolac Inj (Toradol Inj) (08/05/16 18:30) Diphenhydramine Inj (Benadryl Inj) (08/05/16 18:30) Sodium Chlor 0.9% 1000 Ml Inj (Ns 1000 M (08/05/16 18:30) Morphine Inj (Morphine Inj) (08/05/16 19:30) Morphine Inj (Morphine Inj) (08/05/16 20:00) Labs Laboratory Tests Test 08/05/16 15:05 White Blood Count 10.1 TH/MM3 Red Blood Count 4.39 MIL/MM3 Hemoglobin 15.1 GM/DL Hematocrit 44.3 % Mean Corpuscular Volume 101.0 FL Mean Corpuscular Hemoglobin 34.4 PG Mean Corpuscular Hemoglobin 34.1 % Concent Red Cell Distribution Width 13.6 % Platelet Count 364 TH/MM3 Mean Platelet Volume 8.0 FL Neutrophils (%) (Auto) 73.6 % Lymphocytes (%) (Auto) 16.7 % Monocytes (%) (Auto) 7.8 % Eosinophils (%) (Auto) 1.3 % Basophils (%) (Auto) 0.6 % Neutrophils # (Auto) 7.5 TH/MM3 Lymphocytes # (Auto) 1.7 TH/MM3 Monocytes # (Auto) 0.8 TH/MM3 Eosinophils # (Auto) 0.1 TH/MM3 Basophils # (Auto) 0.1 TH/MM3 CBC Comment DIFF FINAL Differential Comment Sodium Level 137 MEQ/L Potassium Level 4.0 MEQ/L Chloride Level 102 MEQ/L Carbon Dioxide Level 24.9 MEQ/L Anion Gap 10 MEQ/L Blood Urea Nitrogen 12 MG/DL Creatinine 0.84 MG/DL Estimat Glomerular Filtration 93 ML/MIN Rate Random Glucose 103 MG/DL Calcium Level 9.8 MG/DL Magnesium Level 2.0 MG/DL Total Creatine Kinase 71 U/L Troponin I 0.03 NG/ML [facility] Supervised Visit with G[facility]: No Interpretation(s) EKG rate 67, sinus rhythm. HI interval 153, QRS 105, QTC 425. Normal axis. Inverted T wave in 2, 3 and aVF. Review of the patient's record reveals previous inferior OK. Differential Diagnosis Tension headache versus electrolyte abnormality versus cervical spinal injury versus less likely ACS versus other Narrative Course 61 year old male presents to the ED for evaluation of "few weeks" history of decreased appetite, lightheadedness, dizziness and dull, bitemporal headache. No alleviating or exacerbating factors reported. Patient states that he had an episode of lightheadedness today which prompted him to seek a the ED. He states that he had an outpatient CT of the brain scheduled later this week. Vitals reviewed. Physical exam reveals an alert, active white male in no acute distress. Chest clear to auscultation bilaterally, abdomen soft, nontender, no focal neural deficits. No midline posterior tenderness of the neck, no limitations to range of motion. IV was established. Patient was administered Toradol, Benadryl and 1 L normal saline. CBC: WBC 10.1, Hgb 15.1. Chemistries: Unremarkable. Cardiac enzymes negative: EKG as above CXR no acute disease: Head CT: No acute process per radiology read. Cervical spine CT: extensive degenerative changes, stenosis worse at C3-C4. Flexion and extension x-rays of the cervical spine: No evidence of instability. Recheck of the patient reveals no improvement of his headache symptoms. He is administered 2 mg of morphine IV. On recheck the patient endorses improvement of headache symptoms. We discussed medication changes as possible source of the patient's ongoing headache and weakness. He does have moderate stenosis at C3/C4. He was provided a copy of the radiological studies performed here. He was prescribed a short course of narcotic pain medications. He is instructed to take the medication as prescribed, avoid driving while taking narcotics, follow-up with neurology and primary care. The patient and his indicated understanding of the instructions and are amenable to the plan of care. This patient is stable and discharged home. Diagnosis Primary Impression: Cervical spinal stenosis Referrals: Juliano Abernathy MD Neurologist Patient Instructions: Cervical Spinal Stenosis (ED), General Instructions Additional Instruction: Rest, hydrate. Avoid any strenuous activities or heavy lifting until cleared by neurology. Take medications as prescribed. Do not drive while taking narcotic pain medications. Follow-up with a neurologist as discussed. Return to the ED for any urgent or emergent medical condition. Med/Other Pt SpecificInfo: Prescription(s) given Scripts Hydrocodone-Acetaminophen (Lortab)5-325 Mg Tab1 Tab PO Q6H PRN (PAIN) #12 TAB Ref 0 Prov:Wilfred Robison MD 08/05/16 Disposition: 01 DISCHARGE HOME Condition: Stable Kristi Smith Aug 05, 2016 16:04
--- NOTE | 2016-08-05 16:15 | RADRPT ---
EXAM DATE/TIME: 08/05/2016 15:36 [facility] COMPARISON: No previous studies available for comparison. INDICATIONS : Dizziness and headache foer one month starting after coronary stent was put in. RADIATION DOSE: 56.36 CTDIvol (mGy) MEDICAL HISTORY : Cardiovascular disease. SURGICAL HISTORY : Coronary artery stent. ENCOUNTER: Initial ACUITY: 1 month PAIN SCALE: 5/10 LOCATION: cranial TECHNIQUE: Multiple contiguous axial images were obtained of the head. Using automated exposure control and adjustment of the mA and/or kV according to patient size, radiation dose was kept as low as reasonably achievable to obtain optimal diagnostic quality images. FINDINGS: CEREBRUM: The ventricles are normal for age. No evidence of midline shift, mass lesion, hemorrha ge or acute infarction. No extra-axial fluid collections are seen. POSTERIOR FOSSA: The cerebellum and brainstem are intact. The 4th ventricle is midline. The cer ebellopontine angle is unremarkable. EXTRACRANIAL: The visualized portion of the orbits is intact. SKULL: The calvaria is intact. No evidence of skull fracture. CONCLUSION: Negative for an acute process. John Douglass MD FACR on August 05, 2016 at 16:12 Board Certified Radiologist. This report was verified electronically.
--- NOTE | 2016-08-05 17:24 | RADRPT ---
EXAM DATE/TIME: 08/05/2016 16:57 [facility] COMPARISON: CHEST PA & LAT, January 01, 2013, 10:46. INDICATIONS : Syncope, dizziness and shortness of breath. MEDICAL HISTORY : Myocardial infarction. SURGICAL HISTORY : Coronary artery stent. ENCOUNTER: Initial ACUITY: 1 month PAIN SCORE: 0/10 LOCATION: Bilateral chest FINDINGS: PA and lateral views of the chest demonstrate the lungs to be symmetrically aerated without evidence of mass, infiltrate or effusion. The cardiomediastinal contours are unremarkable. Osseous structure s are intact. CONCLUSION: No acute disease. John Douglass MD FACR on August 05, 2016 at 17:22 Board Certified Radiologist. This report was verified electronically.
--- NOTE | 2016-08-05 17:37 | RADRPT ---
EXAM DATE/TIME: 08/05/2016 17:02 [facility] COMPARISON: No previous studies available for comparison. INDICATIONS : Right sided neck pain for one month. RADIATION DOSE: 22.22 CTDIvol (mGy) MEDICAL HISTORY : Cardiovascular disease. SURGICAL HISTORY : None. ENCOUNTER: Initial ACUITY: 1 month PAIN SCALE: 5/10 LOCATION: Right neck TECHNIQUE: Volumetric scanning of the cervical spine was performed. Multiplanar reconstructions i n the sagittal, coronal and oblique axial planes were performed. Using automated exposure control a nd adjustment of the mA and/or kV according to patient size, radiation dose was kept as low as reason ably achievable to obtain optimal diagnostic quality images. FINDINGS: Scans were obtained from skull base to T1. There are extensive degenerative changes in the cervical spine. Alignment is reasonably anatomic. There are degenerative changes at C1 and C2. C2-C3: There is mild interspace ridging at C2-C3 causing some flattening of the anterior thecal spac e with bilateral neural foraminal encroachment. C3-C4: There is extensive spinal stenosis at C3-C4 with bilateral neural foraminal encroachment an d moderate spinal stenosis. Fracture is not appreciated. C4-C5: Moderate uncinate ridging is present with bilateral facet disease and neural foraminal encroa chment worse on the left than the right. C5-C6: Mild uncinate ridging is present. Neural foramina are adequate. C6-C7: Uncinate ridging is present with moderate right-sided spinal stenosis and bilateral neural fo raminal encroachment. C7-T1: The bony spinal canal is normal in size. No evidence of disc bulge or herniation. The neura l foramina are bilaterally patent. CONCLUSION: Extensive degenerative changes. Spinal stenosis is worse at the C3-4 level. Control led flexion and extension films may be of benefit to ensure there is no ligamentous instability. John Douglass MD FACR on August 05, 2016 at 17:29 Board Certified Radiologist. This report was verified electronically.
[2016-08-05] MEDS ORDERED: KETOROLAC TROMETHAMINE 30 MG/ML (IVP) VIAL IV PUSH ONE (18:30)
[2016-08-05] MEDS ORDERED: diphenhydrAMINE HCL 50 MG/ML VIAL IV PUSH ONE (18:30)
[2016-08-05] MEDS ORDERED: SODIUM CHLOR 0.9% 1000 ML INJ 1,000 ML IV ONE (18:30)
--- NOTE | 2016-08-05 18:40 | RADRPT ---
EXAM DATE/TIME: 08/05/2016 18:07 [facility] COMPARISON: No previous studies available for comparison. INDICATIONS : Right sided neck pain, abnormal CT. MEDICAL HISTORY : None. SURGICAL HISTORY : None. ENCOUNTER: Initial ACUITY: 1 month PAIN SCORE: 10/10 LOCATION: Right neck. FINDINGS: Flexion and extension views of the cervical spine were performed. The alignment of the cervical vert ebral bodies is maintained in flexion and extension and there is no evidence of subluxation. The pre vertebral soft tissues are normal in thickness. CONCLUSION: Satisfactory range of motion with no evidence of instability. Lamine Davies MD on August 05, 2016 at 18:37 Board Certified Radiologist. This report was verified electronically.
[2016-08-05 18:56] VITALS: BP 133/73; PULSE 65; RESP 20; O2SAT 97
[2016-08-05] MEDS ORDERED: HYDR-3533 PO (19:00)
[2016-08-05] MEDS ORDERED: MORPHINE SULFATE 4 MG/ML INJ IV PUSH ONE ×2 (19:30→20:00)
--- NOTE | 2016-08-06 14:46 | EKG ---
Date Performed: 08/05/2016 Time Performed: 15:16:47 PTAGE: 61 years EKG: Sinus rhythm POSSIBLE INFERIOR MYOCARDIAL INFARCTION CONTINUED EVOLUTION OF POSTERIOR INFERIOR MYOCARDIAL INFARCT ION ABNORMAL ECG PREVIOUS TRACING : 06/18/2016 09.37 DOCTOR: Pedro Anderson Interpretating Date/Time 08/06/2016 14:42:01
== END 2016-08-05 21:22 | disposition home or self-care (01) ==
LOC: NEPC 14:26
DX: M48.02 Spinal stenosis, cervical region (principal); R42 Dizziness and giddiness; R11.0 Nausea; R51 Headache; R94.31 Abnormal electrocardiogram [ECG] [EKG]; E78.00 Pure hypercholesterolemia, unspecified; I25.2 Old myocardial infarction; Z86.79 Personal history of other diseases of the circulatory system; Z87.891 Personal history of nicotine dependence
CPT/HCPCS: 70450; 71010; 71020; 72040; 72125; 80048; 82550; 83735; 84484; 85025; 93005; 96374; 96375; 99284; J1200; J1885; J2270; J7030

== ENCOUNTER 2016-08-07 10:17 | Inpatient (IN) | payer OTHER, MEDICARE ==
[~2016-08-07] VITALS: Ht 188 cm; Wt 85.0 kg
[2016-08-07] VITALS (7 sets, daily range): BP systolic 110–136; BP diastolic 68–94; PULSE 70–86; RESP 16–20; TEMP 97.3–99.6; O2SAT 93–100
[~2016-08-07 10:17] MED LIST changes: +ERGO1CAP10 PO; +HYDR-3533 PO; +LOVA10TA PO
--- NOTE | 2016-08-07 10:39 | PD ---
HPI Chief Complaint: Dizziness Time Seen by Provider: 10:30 Travel History International Travel<30 days: No Contact w/Intl Traveler<30days: No Traveled to known affect area: No History of Present Illness HPI 61-year-old male came to the emergency room with history of dizziness, weight loss, loss of appetite, headache for past 3 weeks. Patient had a STEMI with a stent put in about 3-4 weeks ago. Since then he has been in this state he said. He was in the emergency room 2 days ago with the same complaints. He had a head CT done at that time and workup which was negative and he was discharged home. His friend is here and says that patient almost lost 15 pounds since the symptoms started. Patient seems to be in distress. He keeps complaining that his head hurts. Vital signs were otherwise stable. Denies any chest pain. Patient says he has not been able to eat or drink much due to nausea and decreased appetite. Incidentally I had seen the patient at the time he had come in with STEMI. Patient was discharged home after 3 days of hospitalization after the stent. He was started on Brilinta. [facility] Past Medical History Narrative Medical List of his past medical, social, surgical and family history is reviewed from the nursing note. Hx Anticoagulant Therapy: Yes Heart Rhythm Problems: Yes Cancer: No Cardiovascular Problems: Yes High Cholesterol: Yes Chest Pain: No Congestive Heart Failure: No Coronary Artery Disease: Yes Diminished Hearing: No Endocrine: No Gastrointestinal Disorders: No Genitourinary: No Hypertension: No Immune Disorder: No Implanted Vascular Access Dvce: Yes Musculoskeletal: No Neurologic: No Psychiatric: No Reproductive: No Respiratory: No Past Surgical History Abdominal Surgery: No Cardiac Surgery: Yes (OPEN HEART 99) Ear Surgery: No Endocrine Surgery: No Eye Surgery: No Genitourinary Surgery: No Gynecologic Surgery: No Joint Replacement: Yes (LEFT ANKLE REPLACEMENT) Neurologic Surgery: No Oral Surgery: No Thoracic Surgery: No Other Surgery: Yes Social History Alcohol Use: Yes (DAILY) Tobacco Use: Yes (2 PACK) Substance Use: Yes (WEEKLY MARIJUANA) Allergies-Medications (Allergen,Severity, Reaction): Coded Allergies: No Known Allergies (Unverified , 08/05/16) Comments No known drug allergies. Reported Meds & Prescriptions Reported Meds & Active Scripts Active Metoprolol Tartrate 25 Mg Tab 12.5 Mg PO BID Reported Vitamin D (Ergocalciferol) 50,000 Unit Cap 50,000 Units PO Q7D Brilinta (Ticagrelor) 90 Mg Tab 90 Mg PO BID Lovastatin 10 Mg Tab 10 Mg PO DAILY Viagra (Sildenafil Citrate) 100 Mg Tab 100 Mg PO DAILY PRN Narrative Medication List of his home medications reviewed from the nursing note. Review of Systems Except as stated in HPI: all other systems reviewed are Neg Physical Exam Narrative GENERAL: Awake, alert, anxious, moderate distress, disheveled SKIN: Warm and dry. HEAD: Atraumatic. Normocephalic. EYES: Pupils equal and round. No scleral icterus. No injection or drainage. ENT: No nasal bleeding or discharge. Mucous membranes pink and moist. NECK: Trachea midline. No JVD. CARDIOVASCULAR: Regular rate and rhythm. No murmur appreciated. RESPIRATORY: No accessory muscle use. Clear to auscultation. Breath sounds equal bilaterally. GASTROINTESTINAL: Abdomen soft, non-tender, nondistended. Hepatic and splenic margins not palpable. MUSCULOSKELETAL: No obvious deformities. No clubbing. No cyanosis. No edema. NEUROLOGICAL: Awake and alert. No obvious cranial nerve deficits. Motor grossly within normal limits. Normal speech. PSYCHIATRIC: Appropriate mood and affect; insight and judgment normal. Data Data Last Documented VS Vital Signs Date Time Temp Pulse Resp B/P Pulse Ox O2 Delivery O2 Flow Rate FiO2 08/07/16 14:30 83 16 129/81 94 Room Air 08/07/16 10:18 97.3 Orders Electrocardiogram (08/07/16 11:01) Prothrombin Time / Inr (Pt) (08/07/16 11:01) Complete Blood Count With Diff (08/07/16 11:01) Basic Metabolic Panel (Bmp) (08/07/16 11:01) Troponin I (08/07/16 11:01) Urinalysis - C+S If Indicated (08/07/16 11:01) Chest, Single Ap (08/07/16 11:01) Ecg Monitoring (08/07/16 11:01) Iv Access Insert/Monitor (08/07/16 11:01) Oximetry (08/07/16 11:01) Ondansetron Inj (Zofran Inj) (08/07/16 11:15) Sodium Chloride 0.9% Flush (Ns Flush) (08/07/16 11:15) Mrv Brain W/Wo Contrast (08/07/16 ) Metoclopramide Inj (Reglan Inj) (08/07/16 11:15) Sodium Chlor 0.9% 1000 Ml Inj (Ns 1000 M (08/07/16 11:15) Lorazepam Inj (Ativan Inj) (08/07/16 12:15) Morphine Inj (Morphine Inj) (08/07/16 12:15) Gadodiamide Pf Inj (Omniscan Pf Inj) (08/07/16 14:13) Admit Order (Ed Use Only) (08/07/16 14:57) Place In Observation (08/07/16 ) Code Status (08/07/16 14:57) Vital Signs (Adult) Q4H (08/07/16 14:57) Activity Oob With Assistance (08/07/16 14:57) Diet Regular Basic (08/07/16 Dinner) Sodium Chloride 0.9% Flush (Ns Flush) (08/07/16 15:00) Sodium Chloride 0.9% Flush (Ns Flush) (08/07/16 21:00) Acetaminophen (Tylenol) (08/07/16 15:00) Comprehensive Metabolic Panel (08/08/16 06:00) Complete Blood Count With Diff (08/08/16 06:00) Pt Request For Service (08/07/16 14:57) Case Management Consult (08/07/16 14:57) Scd Bilateral/Knee High EMMA.BID (08/07/16 14:57) Santiago Bilateral/Knee High EMMA.QSHIFT (08/07/16 14:57) Acetaminophen (Tylenol) (08/07/16 15:00) Naloxone Inj (Narcan Inj) (08/07/16 15:00) Albuterol-Ipratropium Neb (Duoneb Neb) (08/07/16 15:00) Thyroid Stimulating Hormone (08/07/16 14:59) Free Thyroxine (T4) (08/07/16 14:59) Afp, Tumor Marker (08/07/16 14:59) Ca 19-9 (08/07/16 14:59) Carcinoembryonic Antigen (Cea) (08/07/16 14:59) Ldh Serum (08/07/16 14:59) Mri Brain W&W/O Contrast (08/08/16 ) Labs Laboratory Tests Test 08/07/16 08/07/16 11:15 12:00 White Blood Count 10.7 TH/MM3 Red Blood Count 4.05 MIL/MM3 Hemoglobin 14.2 GM/DL Hematocrit 40.2 % Mean Corpuscular Volume 99.3 FL Mean Corpuscular Hemoglobin 34.9 PG Mean Corpuscular Hemoglobin 35.2 % Concent Red Cell Distribution Width 13.3 % Platelet Count 335 TH/MM3 Mean Platelet Volume 8.0 FL Neutrophils (%) (Auto) 76.3 % Lymphocytes (%) (Auto) 13.5 % Monocytes (%) (Auto) 8.4 % Eosinophils (%) (Auto) 0.7 % Basophils (%) (Auto) 1.1 % Neutrophils # (Auto) 8.1 TH/MM3 Lymphocytes # (Auto) 1.4 TH/MM3 Monocytes # (Auto) 0.9 TH/MM3 Eosinophils # (Auto) 0.1 TH/MM3 Basophils # (Auto) 0.1 TH/MM3 CBC Comment DIFF FINAL Differential Comment Prothrombin Time 11.8 SEC Prothromb Time International 1.1 RATIO Ratio Sodium Level 135 MEQ/L Potassium Level 4.0 MEQ/L Chloride Level 100 MEQ/L Carbon Dioxide Level 24.2 MEQ/L Anion Gap 11 MEQ/L Blood Urea Nitrogen 10 MG/DL Creatinine 0.66 MG/DL Estimat Glomerular Filtration 123 ML/MIN Rate Random Glucose 97 MG/DL Calcium Level 8.9 MG/DL Troponin I 0.05 NG/ML Urine Color YELLOW Urine Turbidity CLEAR Urine pH 5.0 Urine Specific Casey 1.017 Urine Protein NEG mg/dL Urine Glucose (UA) NEG mg/dL Urine Ketones 80 mg/dL Urine Occult Blood NEG Urine Nitrite NEG Urine Bilirubin NEG Urine Urobilinogen LESS THAN 2.0 MG/DL Urine Leukocyte Esterase NEG Urine RBC 1 /hpf Urine WBC 1 /hpf Urine Mucus FEW /lpf Microscopic Urinalysis Comment CATH-CULT NOT IND MDM Medical Decision Making Medical Screen Exam Complete: Yes Emergency Medical Condition: Yes Medical Record Reviewed: Yes Interpretation(s) Twelve-lead EKG was reviewed by me. Normal sinus rhythm, normal axis, inverted T waves in inferior and lateral leads. Heart rate of 70 bpm. Differential Diagnosis Sinus venous thrombosis, migraine headache, status migrainous Narrative Course 12:41 PM patient was given IV Reglan and Zofran along with IV fluid bolus. Blood test results are back and within normal limit. I've ordered an MRV to rule out sinus venous thrombosis. Awaiting for the test to be done and resulted. Patient continued to complain of headache and I have given him IV morphine as well as Ativan for anxiety. I probably will have to admit this patient for this intractable headache for further investigation if the MRV is negative. 2:45 PM MRV report was read which seems inconclusive for thrombosis. An MRI was requested of the brain. That'll be ordered. Patient will be admitted for intractable headache at this point. Awaiting for the hospitalist call back. Procedures EKG Prior to Arrival: Yes Diagnosis Primary Impression: Intractable headache Qualified Code: R51 - Chronic intractable headache, unspecified headache type Additional Impressions: intractable dizziness Generalized weakness Weight loss Cerebral venous sinus thrombosis Admitting Information Admitting Physician Requests: Admit Scripts Mirtazapine 15 Mg Tab15 Mg PO HS #30 TAB Prov:Torrey Dickens MD 08/08/16 Xxyayroqyf-[id number]-Utwasxha 50-325-40 Mg Tab1 Tab PO Q6H PRN (Headache) # 20 TAB Prov:Torrey Dickens MD 08/08/16 Denis Thorpe MD Aug 07, 2016 10:39
[2016-08-07] MEDS ORDERED: ERGO1CAP10 PO ×2 (10:52)
[2016-08-07] MEDS ORDERED: ONDANSETRON HCL 4 MG/2 ML VIAL IVP ONE (11:15)
[2016-08-07] MEDS ORDERED: SODIUM CHLOR 0.9% 1000 ML INJ 1,000 ML IV ONE (11:15)
[2016-08-07] MEDS ORDERED: SODIUM CHLORIDE 0.9% FLUSH 5 ML FLUSH IVF PRN (11:15)
[2016-08-07] MEDS ORDERED: METOCLOPRAMIDE HCL 10 MG/2 ML VIAL IV PUSH ONE (11:15)
[2016-08-07 11:30] LABS: AUTOMATED NEUTROPHIL # 8.1 TH/MM3 (1.8-7.7); BASOPHIL # 0.1 TH/MM3 (0-0.2); BASOPHIL % 1.1 % (0.0-2.0); EOSINOPHIL # 0.1 TH/MM3 (0-0.4); EOSINOPHIL % 0.7 % (0.0-4.0); HEMATOCRIT 40.2 % (39.0-51.0); HEMO FLAGS DIFF FINAL; LYMPH % 13.5 % (9.0-44.0); LYMPHOCYTE # 1.4 TH/MM3 (1.0-4.8); MEAN CELL VOLUME 99.3 FL (80.0-100.0); MEAN CORPUSCULAR HEMOGLOBIN 34.9 PG (27.0-34.0); MEAN CORPUSCULAR HGB CONC 35.2 % (32.0-36.0); MONO % 8.4 % (0.0-8.0); NEUT % 76.3 % (16.0-70.0); PLATELET COUNT 335 TH/MM3 (150-450); RED BLOOD COUNT 4.05 MIL/MM3 (4.50-5.90); RED CELL DISTRIBUTION WIDTH 13.3 % (11.6-17.2); WHITE BLOOD COUNT 10.7 TH/MM3 (4.0-11.0)
[2016-08-07 11:36] LABS: INTERNATIONAL NORMALIZED RATIO 1.1 RATIO; PROTHROMBIN TIME - PATIENT 11.8 SEC (9.8-11.6)
--- NOTE | 2016-08-07 11:45 | RADRPT ---
EXAM DATE/TIME: 08/07/2016 10:59 [facility] COMPARISON: SPINE CERVICAL FLEX & EXT ONLY, August 05, 2016, 18:07. INDICATIONS : Possible cerebrovascular accident. Dizziness. MEDICAL HISTORY : Myocardial infarction. SURGICAL HISTORY : Coronary artery stent. ENCOUNTER: Subsequent ACUITY: 1 day PAIN SCORE: 0/10 LOCATION: Bilateral chest FINDINGS: A single view of the chest demonstrates the lungs to be symmetrically aerated without evidence of mas s, infiltrate or effusion. The cardiomediastinal contours are unremarkable. Osseous structures are intact. The patient is post median sternotomy. CONCLUSION: 1. Post surgical changes. No acute cardiopulmonary findings. Von Douglass MD on August 07, 2016 at 11:43 Board Certified Radiologist. This report was verified electronically.
[2016-08-07 11:53] LABS: BICARBONATE 24.2 MEQ/L (21.0-32.0)
[2016-08-07] MEDS ORDERED: LORazepam 2 MG/ML VIAL IV PUSH ONE (12:15)
[2016-08-07] MEDS ORDERED: MORPHINE SULFATE 4 MG/ML INJ IV PUSH ONE (12:15)
[2016-08-07 12:26] LABS: BLOOD, URINE NEG (NEG); COMMENT (UR) CATH-CULT NOT IND; CULTURE IF INDICATED CATH CULTURE NOT IND; GLUCOSE,URINE NEG (NEG); KETONE, URINE 80 mg/dL (NEG); MUCUS URINE FEW /lpf (OCC); NITRITE,URINE NEG (NEG); URINE COLOR YELLOW (YELLW/STRAW)
[2016-08-07] MEDS ORDERED: GADODIAMIDE PF 287 MG/ML 20 ML VIAL (for RAD MRI) IV ONE (14:13)
--- NOTE | 2016-08-07 14:27 | RADRPT ---
EXAM DATE/TIME: 08/07/2016 13:23 COMPARISON: No previous studies available for comparison. INDICATIONS : Cephalgia. CONTRAST: 20 cc Omniscan (gadodiamide) IV MEDICAL HISTORY : Cardiovascular disease SURGICAL HISTORY : CABG Coronary artery stent. ENCOUNTER: Initial ACUITY: 3 weeks PAIN SCORE: 6/10 LOCATION: cranial FINDINGS: The suprasternal sinus, cortical veins, internal cerebral veins, straight sinus and right transverse sinus are all widely patent. The left transverse sinus appears diminutive in size. The left internal jugular is not clearly visualized. This may be on a congenital basis however, I cannot exclude thromb osis of the left transverse sinus. Dedicated MRI imaging of the brain to assess for edematous changes along the course of the left transverse sinus would be warranted. CONCLUSION: 1. Nonvisualization of the left transverse sinus and left jugular vein. Please see above discussion. Von Douglass MD on August 07, 2016 at 14:22 Board Certified Radiologist. This report was verified electronically.
[2016-08-07] MEDS ORDERED: NALOXONE HCL 0.4 MG/ML AMP IV PRN (15:00)
[2016-08-07] MEDS ORDERED: RESP: ALBUTEROL 2.5 MG/IPRATROPIUM 0.5 MG NEB (PRN) NEB (15:00)
[2016-08-07] MEDS ORDERED: ACETAMINOPHEN 325 MG TAB PO PRN ×2 (15:00)
[2016-08-07] MEDS ORDERED: SODIUM CHLORIDE 0.9% FLUSH 5 ML FLUSH FLUSH PRN (15:00)
--- NOTE | 2016-08-07 15:02 | HHI.HP ---
HPI Service [facility] Hospitalists Primary Care Physician Tamie Serrato MD Admission Diagnosis incarcerated hernia Diagnoses: (1) Dizziness, nonspecific (2) Intractable headache (3) Weight loss Chief Complaint: Dizziness, intractable headache, weight loss Travel History International Travel<30 Days: No Contact w/Intl Traveler <30 Da: No Traveled to Known Affected Are: No History of Present Illness 61-year-old male with a history of systolic CHF, hyperlipidemia, hypertension was admitted to [facility] back in June secondary to non-ST elevation MD and underwent PCI/ANTONIA to RCA 06/18/16 discharged home 06/20/16, comes to the hospital today for evaluation of ongoing complaint of dizziness, intractable headache and a 15 pound weight loss. states, since his last hospitalization he has not felt the same and immediately after discharge he has been complaining of dizziness however denies any trauma. He was seen in the ED on debris 12/26/16 and at a time head CT scan was done and was read negative and patient has unremarkable labs work. He was then discharged home, however returns today with the same complaints. Patient has abnormal brain MRV finding of a questionable thrombosis of the left transverse sinus He denies any suicidal ideation however states he's lost interest in multiple activities. He denies any febrile episode or recent sexual activity. Review of Systems Other 12 systems reviewed and are negative except for the one mentioned in history of present illness Past Family Social History Past Medical History Heart Rhythm Problems: Yes Cardiovascular Problems: Yes High Cholesterol: Yes Coronary Artery Disease: Yes Implanted Vascular Access Dvce: Yes Past Surgical History Cardiac Surgery: Yes (OPEN HEART 99) Joint Replacement: Yes (LEFT ANKLE REPLACEMENT) Reported Medications Lortab (Hydrocodone-Acetaminophen) 5-325 Mg Tab 1 Tab PO Q6H PRN Metoprolol Tartrate 25 Mg Tab 12.5 Mg PO BID Vitamin D (Ergocalciferol) 50,000 Unit Cap 50,000 Units PO Q7D Brilinta (Ticagrelor) 90 Mg Tab 90 Mg PO BID Lovastatin 10 Mg Tab 10 Mg PO DAILY Viagra (Sildenafil Citrate) 100 Mg Tab 100 Mg PO DAILY PRN Allergies: Coded Allergies: No Known Allergies (Unverified , 08/05/16) Family History Family history was positive for hypertension Social History Alcohol Use: Yes (DAILY) Tobacco Use: Yes (2 PACK) Substance Use: Yes (WEEKLY MARIJUANA) Physical Exam Vital Signs Vital Signs Date Time Temp Pulse Resp B/P Pulse Ox O2 Delivery O2 Flow Rate FiO2 08/07/16 14:30 83 16 129/81 94 Room Air 08/07/16 11:00 70 16 110/77 95 Room Air 08/07/16 10:47 73 17 96 Room Air 08/07/16 10:47 100 Room Air 08/07/16 10:18 97.3 85 18 136/94 96 Room Air Physical Exam GENERAL: This is a well-nourished, well-developed patient, in no apparent distress. SKIN: No rashes, ecchymoses or lesions. Cool and dry. HEAD: Atraumatic. Normocephalic. No temporal or scalp tenderness. EYES: Pupils equal round and reactive. Extraocular motions intact. No scleral icterus. No injection or drainage. ENT: Nose without bleeding, purulent drainage or septal hematoma. Throat without erythema, tonsillar hypertrophy or exudate. Uvula midline. Airway patent. NECK: Trachea midline. No JVD or lymphadenopathy. Supple, nontender, no meningeal signs. CARDIOVASCULAR: Regular rate and rhythm without murmurs, gallops, or rubs. RESPIRATORY: Clear to auscultation. Breath sounds equal bilaterally. No wheezes , rales, or rhonchi. GASTROINTESTINAL: Abdomen soft, non-tender, nondistended. No hepato-splenomegaly , or palpable masses. No guarding. MUSCULOSKELETAL: Extremities without clubbing, cyanosis, or edema. No joint tenderness, effusion, or edema noted. No calf tenderness. Negative Homans sign bilaterally. NEUROLOGICAL: Awake and alert. Cranial nerves II through XII intact. Motor and sensory grossly within normal limits. Five out of 5 muscle strength in all muscle groups. Normal speech. Laboratory Laboratory Tests Test 08/07/16 08/07/16 11:15 12:00 White Blood Count 10.7 Red Blood Count 4.05 Hemoglobin 14.2 Hematocrit 40.2 Mean Corpuscular Volume 99.3 Mean Corpuscular Hemoglobin 34.9 Mean Corpuscular Hemoglobin 35.2 Concent Red Cell Distribution Width 13.3 Platelet Count 335 Mean Platelet Volume 8.0 Neutrophils (%) (Auto) 76.3 Lymphocytes (%) (Auto) 13.5 Monocytes (%) (Auto) 8.4 Eosinophils (%) (Auto) 0.7 Basophils (%) (Auto) 1.1 Neutrophils # (Auto) 8.1 Lymphocytes # (Auto) 1.4 Monocytes # (Auto) 0.9 Eosinophils # (Auto) 0.1 Basophils # (Auto) 0.1 CBC Comment DIFF FINAL Differential Comment Prothrombin Time 11.8 Prothromb Time International 1.1 Ratio Sodium Level 135 Potassium Level 4.0 Chloride Level 100 Carbon Dioxide Level 24.2 Anion Gap 11 Blood Urea Nitrogen 10 Creatinine 0.66 Estimat Glomerular Filtration 123 Rate Random Glucose 97 Calcium Level 8.9 Troponin I 0.05 Urine Color YELLOW Urine Turbidity CLEAR Urine pH 5.0 Urine Specific [place] 1.017 Urine Protein NEG Urine Glucose (UA) NEG Urine Ketones 80 Urine Occult Blood NEG Urine Nitrite NEG Urine Bilirubin NEG Urine Urobilinogen LESS THAN 2.0 Urine Leukocyte Esterase NEG Urine RBC 1 Urine WBC 1 Urine Mucus FEW Microscopic Urinalysis Comment CATH-CULT NOT IND Result Diagram: 08/07/16 1115 08/07/16 1115 Imaging Last Impressions Chest X-Ray 08/07/16 1101 Signed Impressions: Service Date/Time: Sunday, August 07, 2016 10:59 - CONCLUSION: 1. Post surgical changes. No acute cardiopulmonary findings. Von Douglass MD Head/Brain Mag Res Venography 08/07/16 0000 Signed Impressions: Service Date/Time: Sunday, August 07, 2016 13:23 - CONCLUSION: 1. Nonvisualization of the left transverse sinus and left jugular vein. Please see above discussion. Von Douglass MD Assessment and Plan Problem List: (1) Intractable headache ICD Code: R51 Status: Acute (2) Dizziness, nonspecific ICD Code: R42 Status: Acute (3) Weight loss ICD Code: R63.4 Status: Acute (4) Thrombosis of transverse sinus ICD Code: G08 Status: Acute Assessment and Plan 61-year-old male with 1-Intractable headache: Brain MRV noted and reviewed with finding of questionable thrombosis of the left transverse sinus, will check brain MRI in 24 hours and consider consultation to neurosurgery versus intervention radiology. 2-Dizziness: Head CT 08/05/16 was unremarkable, brain MRV 08/07/16 for questionable finding of thrombosis of the left transverse sinus, with follow brain MRI in 24 hours. Conservative management. Consult to treat and eval. 3-Weight loss: Although all labs unremarkable, will check tumor markers including AFP, CA 19, CEA tumor HIV testing and rule out thyroid dysfunctions with TSH and free T4 and treat accordingly. Dietitian consult for calorie count and check prealbumin. 4-History of CAD, status post PCI/ANTONIA to RCA 06/18/16: Resume outpatient medications 5-Anxiety: In The face of decreased appetite and weight loss, will start low- dose Remeron DVT prophylaxis:B- SCDs Code Status Full code Discussed Condition With Patient, brother, ED physician Problem Qualifiers (1) Intractable headache: Qualified Code: R51 - Chronic intractable headache, unspecified headache type Torrey Dickens MD Aug 07, 2016 15:02
[2016-08-07] MEDS ORDERED: TEMAZEPAM 15 MG CAP PO PRN (16:00)
[2016-08-07] MEDS: ACETAMIN 325 MG/BUTALBITAL 50 MG/CAFFEINE 40 MG TAB PO PRN (17:17)
[2016-08-07 20:58] LABS: FREE T4 1.15 NG/DL (0.76-1.46)
[2016-08-07] MEDS: SODIUM CHLORIDE 0.9% FLUSH 5 ML FLUSH FLUSH SCH (21:00)
[2016-08-07] MEDS: METOPROLOL TARTRATE 25 MG TAB PO SCH (22:44)
[2016-08-07] MEDS: MIRTAZAPINE 15 MG TAB PO SCH (22:44)
[2016-08-07] MEDS: TICAGRELOR 90 MG TAB PO SCH (22:44)
[2016-08-07] MEDS ORDERED: PILL SPLITTER OTHER PRN (23:00)
[2016-08-08 00:51] VITALS: BP 118/69; PULSE 58; RESP 18; TEMP 97.7; O2SAT 95
[2016-08-08] MEDS: ACETAMIN 325 MG/BUTALBITAL 50 MG/CAFFEINE 40 MG TAB PO PRN ×3 (02:46→18:01)
[2016-08-08 03:00] LABS: BICARBONATE 25.3 MEQ/L (21.0-32.0); POTASSIUM 4.2 MEQ/L (3.5-5.1)
[2016-08-08 07:23] LABS: ALKALINE PHOSPHATASE 81 U/L (45-117); ALT (GPT) 12 U/L (12-78); ANION GAP 7 MEQ/L (5-15); AST (GOT) 14 U/L (15-37); BICARBONATE 30.6 MEQ/L (21.0-32.0); BLOOD UREA NITROGEN 10 MG/DL (7-18); CHLORIDE 101 MEQ/L (98-107); GLOMERULAR FILTRATION RATE 87 ML/MIN (>89); POTASSIUM 4.2 MEQ/L (3.5-5.1); SODIUM (NA) 139 MEQ/L (136-145); TOTAL BILIRUBIN ADULT 0.5 MG/DL (0.2-1.0)
[2016-08-08 07:27] LABS: AUTOMATED NEUTROPHIL # 6.6 TH/MM3 (1.8-7.7); BASOPHIL # 0.1 TH/MM3 (0-0.2); BASOPHIL % 0.5 % (0.0-2.0); EOSINOPHIL # 0.2 TH/MM3 (0-0.4); EOSINOPHIL % 1.6 % (0.0-4.0); HEMATOCRIT 41.6 % (39.0-51.0); HEMO FLAGS DIFF FINAL; LYMPH % 19.7 % (9.0-44.0); LYMPHOCYTE # 1.9 TH/MM3 (1.0-4.8); MEAN CELL VOLUME 100.7 FL (80.0-100.0); MEAN CORPUSCULAR HEMOGLOBIN 34.6 PG (27.0-34.0); MEAN CORPUSCULAR HGB CONC 34.4 % (32.0-36.0); MONO % 11.5 % (0.0-8.0); NEUT % 66.7 % (16.0-70.0); PLATELET COUNT 299 TH/MM3 (150-450); RED BLOOD COUNT 4.13 MIL/MM3 (4.50-5.90); RED CELL DISTRIBUTION WIDTH 13.2 % (11.6-17.2); WHITE BLOOD COUNT 9.8 TH/MM3 (4.0-11.0)
[2016-08-08 08:00] VITALS: PULSE 65
--- NOTE | 2016-08-08 08:17 | HHI.PR ---
Subjective Remarks Follow-up intractable headaches/weight loss 08/08/16-patient seen and examined, report improvement of headaches, however still rated 4/10 in intensity but stated he was able to have a good night sleep last night. Afebrile Objective Vitals Vital Signs Date Time Temp Pulse Resp B/P Pulse Ox O2 Delivery O2 Flow Rate FiO2 08/08/16 00:51 97.7 58 18 118/69 95 08/07/16 20:42 99.3 86 18 115/68 93 08/07/16 18:12 99.6 73 20 134/73 96 08/07/16 15:23 73 17 128/77 95 Room Air 08/07/16 14:30 83 16 129/81 94 Room Air 08/07/16 11:00 70 16 110/77 95 Room Air 08/07/16 10:47 73 17 96 Room Air 08/07/16 10:47 100 Room Air 08/07/16 10:18 97.3 85 18 136/94 96 Room Air Result Diagram: 08/08/16 0622 08/08/16 0622 Imaging Last Impressions Chest X-Ray 08/07/16 1101 Signed Impressions: Service Date/Time: Sunday, August 07, 2016 10:59 - CONCLUSION: 1. Post surgical changes. No acute cardiopulmonary findings. Von Douglass MD Head/Brain Mag Res Venography 08/07/16 0000 Signed Impressions: Service Date/Time: Sunday, August 07, 2016 13:23 - CONCLUSION: 1. Nonvisualization of the left transverse sinus and left jugular vein. Please see above discussion. Von Douglass MD Objective Remarks GENERAL: NAD SKIN: Warm and dry. HEAD: Normocephalic. EYES: No scleral icterus. No injection or drainage. NECK: Supple, trachea midline. No JVD or lymphadenopathy. CARDIOVASCULAR: Regular rate and rhythm without murmurs, gallops, or rubs. RESPIRATORY: Breath sounds equal bilaterally. No accessory muscle use. GASTROINTESTINAL: Abdomen soft, non-tender, nondistended. MUSCULOSKELETAL: No cyanosis, or edema. BACK: Nontender without obvious deformity. No CVA tenderness. A/P Problem List: (1) Intractable headache ICD Code: R51 Status: Acute (2) Dizziness, nonspecific ICD Code: R42 Status: Acute (3) Weight loss ICD Code: R63.4 Status: Acute (4) Thrombosis of transverse sinus ICD Code: G08 Status: Acute Assessment and Plan 61-year-old male with 1-Intractable headache: Brain MRV with finding of questionable thrombosis of the left transverse sinus, check brain MRI this a.m. and continue Fioricet and consider consultation to neurosurgery versus intervention radiology. 2-Dizziness: Head CT 08/05/16 was unremarkable, brain MRV 08/07/16 for questionable finding of thrombosis of the left transverse sinus, with follow brain MRI today. Conservative management. Consult to treat and eval. 3-Weight loss: Normal CA 19, AFP however CEA slightly up therefore will order abdomen /pelvic CT scan. HIV pending .normal TSH and free T4 . Dietitian consult for calorie count and check prealbumin. 4-History of CAD, status post PCI/ANTONIA to RCA 06/18/16: Continue outpatient medications 5-Anxiety: In The face of decreased appetite and weight loss, continue low-dose Remeron DVT prophylaxis:B- SCDs Problem Qualifiers (1) Intractable headache: Qualified Code: R51 - Chronic intractable headache, unspecified headache type Torrey Dickens MD Aug 08, 2016 08:17
[2016-08-08 08:29] VITALS: BP 130/77; PULSE 69; RESP 20; TEMP 98; O2SAT 97
[2016-08-08] MEDS: SODIUM CHLORIDE 0.9% FLUSH 5 ML FLUSH FLUSH SCH ×2 (08:51→20:13)
[2016-08-08] MEDS: METOPROLOL TARTRATE 25 MG TAB PO SCH ×2 (08:52→20:13)
[2016-08-08] MEDS: PRAVASTATIN SOD 10 MG TAB PO SCH (08:52)
[2016-08-08] MEDS: TICAGRELOR 90 MG TAB PO SCH ×2 (08:54→20:13)
[2016-08-08] MEDS ORDERED: DIATRIZOATE MEGLUM/DIATRIZOATE SOD 9 ML CUP PO ONE (09:00)
[2016-08-08] MEDS ORDERED: GADODIAMIDE PF 287 MG/ML 20 ML VIAL (for RAD MRI) IV ONE (09:54)
--- NOTE | 2016-08-08 10:02 | RADRPT ---
EXAM DATE/TIME: 08/08/2016 09:04 [facility] COMPARISON: No previous studies available for comparison. INDICATIONS: Stroke. Abnormal MRV. Patient states he had a heart attack in June. CONTRAST: 17 cc Omniscan (gadodiamide) IV MEDICAL HISTORY: Cardiovascular disease SURGICAL HISTORY: CABG. Ankle surgery ENCOUNTER: Subsequent ACUITY: 1 month PAIN SCORE: 3/10 LOCATION: Cranial TECHNIQUE: Multiplanar, multisequence images of the brain was performed with and without contrast. FINDINGS: On the flare images there is a 7 x 5 mm area of increased signal just right side of the posterior gen u of the corpus callosum. I believe it is within the white matter. The lesion shows some increased signal in the diffusion weighted sequences. Could be unusual stroke. In the sandy frontal region the re is a small area measuring less than 3 mm with a slightly increased signal. A 3 mm subtle area of increased signal in the right cerebellar hemisphere with some increased signal more linear on the fla re images more suggestive of a venous angioma. CONCLUSION: Small area of increased signal on the flare images just on the right side of the posterior genu of th e corpus callosum, could be an unusual appearing stroke. I do not see any hemorrhage or enhancement in this region. Small lesion in the right cerebellar hemisphere, I suspect this is a small venous angioma. Very tiny focal area of increased signal in the left frontal region will have to be followed. Wayne Sheffield MD on August 08, 2016 at 9:50 Board Certified Radiologist. This report was verified electronically.
[2016-08-08 13:00] VITALS: BP 109/61; PULSE 64; RESP 19; TEMP 98; O2SAT 95
[2016-08-08] MEDS ORDERED: BUTATAB6 PO (13:42)
[2016-08-08] MEDS ORDERED: MIRTA15 PO (13:45)
[2016-08-08] MEDS ORDERED: IOHEXOL 350 MG/ML 10 ML VIAL (for RAD DIAG) IV ONE (18:33)
--- NOTE | 2016-08-08 18:52 | RADRPT ---
EXAM DATE/TIME: 08/08/2016 18:21 [place] COMPARISON: No previous studies available for comparison. INDICATIONS : Weight loss. IV CONTRAST: 75 cc Omnipaque 350 (iohexol) IV ORAL CONTRAST: Prescribed oral contrast ingested. RADIATION DOSE: 9.96 CTDIvol (mGy) MEDICAL HISTORY : Cardiovascular disease. Hypertension. Myocardial infarction. SURGICAL HISTORY : None. ENCOUNTER: Initial ACUITY: 2 days PAIN SCALE: 0/10 LOCATION: abdomen TECHNIQUE: Volumetric scanning of the abdomen and pelvis was performed. Using automated exposure control and ad justment of the mA and/or kV according to patient size, radiation dose was kept as low as reasonably achievable to obtain optimal diagnostic quality images. FINDINGS: CT Abdomen: There is an approximate 2.9 cm solid mass in the superior pole of the right kidney. The l iver, spleen, pancreas, left kidney, adrenals are unremarkable. There is no evidence for any apprecia ble pathological adenopathy, free fluid, or bowel obstruction. There is an approximate 1.6 cm triang ular density in the lingula probably an area of scar. Evidence for prior granulomatous exposure with multiple calcified granulomas in the liver and spleen. Chronic vascular calcifications are present in volving the aorta, iliac arteries without any significant stenosis or aneurysmal dilatations for tech nique. CT pelvis: There is no evidence for mass, abscess formation, or any significant adenopathy within the pelvis. The prostate gland is inhomogeneous and measures 3.5 x 4.3 cm in AP and transverse diameters and nonspecific. There are numerous diverticuli mainly in the sigmoid colon without definite signs o f diverticulitis. CONCLUSION: 1. Right renal mass almost certainly renal cell carcinoma unless proven otherwise without evidence fo r metastatic disease. 2. Probable scar in the lingula, repeat noncontrasted CT is suggested in 6 months as a conservative f ollow up. Arabella Wilks MD on August 08, 2016 at 18:46 Board Certified Radiologist. This report was verified electronically.
[2016-08-08 19:14] VITALS: BP 117/77; PULSE 88; RESP 18; O2SAT 96
[2016-08-08] MEDS: MIRTAZAPINE 15 MG TAB PO SCH (20:13)
[2016-08-08 21:57] VITALS: PULSE 82
[2016-08-09] VITALS (9 sets, daily range): BP systolic 89–121; BP diastolic 44–73; PULSE 71–90; RESP 18–20; TEMP 98–98.5; O2SAT 94–97
--- NOTE | 2016-08-09 00:04 | EKG ---
Date Performed: 08/07/2016 Time Performed: 11:15:53 PTAGE: 61 years EKG: Sinus rhythm LOW QRS VOLTAGE IN EXTREMITY LEADS PROBABLE INFERIOR MYOCARDIAL INFARCTION ABNORMAL ECG PREVIOUS TRACING : 08/05/2016 15.16 Compared to prior tracing no significant change DOCTOR: Willy Angel Interpretating Date/Time 08/09/2016 00:03:35
[2016-08-09] MEDS: ACETAMIN 325 MG/BUTALBITAL 50 MG/CAFFEINE 40 MG TAB PO PRN ×3 (01:27→16:26)
[2016-08-09] MEDS: PRAVASTATIN SOD 10 MG TAB PO SCH (08:35)
[2016-08-09] MEDS: METOPROLOL TARTRATE 25 MG TAB PO SCH ×2 (08:35→20:05)
[2016-08-09] MEDS: SODIUM CHLORIDE 0.9% FLUSH 5 ML FLUSH FLUSH SCH ×2 (08:35→20:06)
[2016-08-09] MEDS: TICAGRELOR 90 MG TAB PO SCH ×2 (08:36→20:05)
--- NOTE | 2016-08-09 10:51 | HHI.PR ---
Subjective Remarks Follow-up intractable headaches/weight loss 08/08/16-patient seen and examined, report improvement of headaches, however still rated 4/10 in intensity but stated he was able to have a good night sleep last night. Afebrile 08/09/16-patient seen and examined, still complains now of intractable headache. CT abdomen with finding of right kidney mass, however patient denies any history of gross hematuria. Brother at the bedside Objective Vitals Vital Signs Date Time Temp Pulse Resp B/P Pulse Ox O2 Delivery O2 Flow Rate FiO2 08/09/16 08:10 98.0 74 20 116/70 95 08/09/16 03:47 84 18 121/73 97 08/09/16 02:32 16 08/09/16 01:03 83 08/08/16 21:57 82 08/08/16 19:14 88 18 117/77 96 08/08/16 13:00 98.0 64 19 109/61 95 I/O 08/08/16 08/08/16 08/08/16 08/09/16 08/09/16 08/09/16 07:00 15:00 23:00 07:00 15:00 23:00 Intake Total 2 ml Balance 2 ml Intake IV Total 2 ml # Voids 4 Result Diagram: 08/08/16 0622 08/08/16 0622 Imaging Last Impressions Abdomen/Pelvis CT 08/08/16 0600 Signed Impressions: Service Date/Time: August 18:21 - CONCLUSION: 1. Right renal mass almost certainly renal cell carcinoma unless proven otherwise without evidence for metastatic disease. 2. Probable scar in the lingula, repeat noncontrasted CT is suggested in 6 months as a conservative follow up. Arabella Wilks MD Brain MRI 08/08/16 0000 Signed Impressions: Service Date/Time: August 09:04 - CONCLUSION: Small area of increased signal on the flare images just on the right side of the posterior genu of the corpus callosum, could be an unusual appearing stroke. I do not see any hemorrhage or enhancement in this region. Small lesion in the right cerebellar hemisphere, I suspect this is a small venous angioma. Very tiny focal area of increased signal in the left frontal region will have to be followed. Wayne Sheffield MD Chest X-Ray 08/07/16 1101 Signed Impressions: Service Date/Time: Sunday, August 07, 2016 10:59 - CONCLUSION: 1. Post surgical changes. No acute cardiopulmonary findings. Von Douglass MD Head/Brain Mag Res Venography 08/07/16 0000 Signed Impressions: Service Date/Time: Sunday, August 07, 2016 13:23 - CONCLUSION: 1. Nonvisualization of the left transverse sinus and left jugular vein. Please see above discussion. Von Douglass MD Objective Remarks GENERAL: NAD SKIN: Warm and dry. HEAD: Normocephalic. EYES: No scleral icterus. No injection or drainage. NECK: Supple, trachea midline. No JVD or lymphadenopathy. CARDIOVASCULAR: Regular rate and rhythm without murmurs, gallops, or rubs. RESPIRATORY: Breath sounds equal bilaterally. No accessory muscle use. GASTROINTESTINAL: Abdomen soft, non-tender, nondistended. MUSCULOSKELETAL: No cyanosis, or edema. BACK: Nontender without obvious deformity. No CVA tenderness. A/P Problem List: (1) Intractable headache ICD Code: R51 Status: Acute (2) Dizziness, nonspecific ICD Code: R42 Status: Acute (3) Weight loss ICD Code: R63.4 Status: Acute (4) Thrombosis of transverse sinus ICD Code: G08 Status: Acute Assessment and Plan 61-year-old male with 1-Intractable headache: Brain MRV with finding of questionable thrombosis of the left transverse sinus, brain MRI noted and reviewed with finding of small venous angioma for which neurosurgery was consulted yesterday 08/08/16. continue Fioricet and consider consultation to neurology 2-Dizziness: Head CT 08/05/16 was unremarkable, brain MRV 08/07/16 for questionable finding of thrombosis of the left transverse sinus, brain MRI with finding of small venous angioma for which neurosurgery has been consulted. Conservative management. 3-Weight loss: Normal CA 19, AFP however CEA slightly up and CT abdomen with finding of right renal mass. HIV negative .normal TSH and free T4 . Dietitian ff and continue with calorie count and check prealbumin. 4-History of CAD, status post PCI/ANTONIA to RCA 06/18/16: Continue outpatient medications 5-Anxiety: In The face of decreased appetite and weight loss, continue low-dose Remeron 6-Right renal mass: CT abdomen/pelvis noted and reviewed with finding of right renal mass for which I will consult urology for further evaluation DVT prophylaxis:B- SCDs Case discussed this outsole caser regarding changing admission status to inpatient Transferred to Med/Surg Problem Qualifiers (1) Intractable headache: Qualified Code: R51 - Chronic intractable headache, unspecified headache type Torery Dickens MD Aug 09, 2016 10:51
--- NOTE | 2016-08-09 16:02 | PD.CONS ---
HPI Service Urology Consult Requested By Reason for Consult Incidental finding of a right renal mass Primary Care Physician Tamie Serrato MD Diagnosis: (1) Intractable headache ICD Code: R51 (2) Dizziness, nonspecific ICD Code: R42 (3) Weight loss ICD Code: R63.4 (4) Thrombosis of transverse sinus ICD Code: G08 History of Present Illness 61 year-old gentleman with multiple medical problems including congestive heart failure, hyperlipidemia, recent LA and hypertension who is now admitted for further management of dizziness, intractable headache and weight loss. During the course of his present hospitalization a CT scan was performed which demonstrated an incidental finding of a 2.9 cm solid mass involving the superior right kidney. A urology consult was placed regarding further recommendations of this mass. Patient denies flank pain or hematuria. He reports that he was worked up for a trauma related incident in the past and was told that he had 3 kidneys. Otherwise he denies any prior history. Review of Systems Constitutional: COMPLAINS OF: Weight loss Gastrointestinal: DENIES: Abdominal pain Genitourinary: DENIES: Hematuria, Dysuria Neurologic: COMPLAINS OF: Headache Except as stated in HPI: all other systems reviewed are Neg Past Family Social History Past Medical History Recent MRI Congestive heart failure Hypertension Hyperlipidemia Past Surgical History Status post open heart surgery 1998 Status post left ankle surgery Reported Medications Refer to EMR Allergies: Coded Allergies: No Known Allergies (Unverified , 08/05/16) Active Ordered Medications Refer to EMR Family History Hypertension Social History Smoker of 2 packs per day Daily alcohol use Weekly marijuana use Physical Exam Vital Signs Vital Signs Date Time Temp Pulse Resp B/P Pulse Ox O2 Delivery O2 Flow Rate FiO2 08/09/16 15:55 98.0 81 119/66 94 08/09/16 11:31 98.5 71 19 89/44 96 08/09/16 08:10 98.0 74 20 116/70 95 08/09/16 08:00 73 08/09/16 03:47 84 18 121/73 97 08/09/16 02:32 16 08/09/16 01:03 83 08/08/16 21:57 82 08/08/16 19:14 88 18 117/77 96 Physical Exam GENERAL: This is a well-nourished, well-developed patient, in no apparent distress. SKIN: No rashes, ecchymoses or lesions. Cool and dry. HEAD: Atraumatic. Normocephalic. No temporal or scalp tenderness. EYES: Pupils equal round and reactive. Extraocular motions intact. No scleral icterus. No injection or drainage. ENT: Nose without bleeding, purulent drainage or septal hematoma. Throat without erythema, tonsillar hypertrophy or exudate. Uvula midline. Airway patent. NECK: Trachea midline. No JVD or lymphadenopathy. Supple, nontender, no meningeal signs. GASTROINTESTINAL: Abdomen soft, non-tender, nondistended. No hepato-splenomegaly , or palpable masses. No guarding. GENITOURINARY: No CVA tenderness MUSCULOSKELETAL: Extremities without clubbing, cyanosis, or edema. No joint tenderness, effusion, or edema noted. No calf tenderness. Negative Homans sign bilaterally. NEUROLOGICAL: Awake and alert. Cranial nerves II through XII intact. Motor and sensory grossly within normal limits. Five out of 5 muscle strength in all muscle groups. Normal speech. Result Diagram: 08/08/1662108/08/[address] scan of the abdomen demonstrated a 2.9 cm solid mass involving the superior right kidney suspicious for malignancy. Assessment and Plan Assessment and Plan Urologic impression: Incidental finding of a 2.9 cm solid mass involving the upper pole of the right kidney Recommendations: #1 no acute intervention indicated at the present time #2 please arrange office follow up with me after hospital discharge so that appropriate outpatient workup may be implemented. #3 discussed obtaining a needle biopsy of the right renal mass as an outpatient Problem Qualifiers (1) Intractable headache: Qualified Code: R51 - Chronic intractable headache, unspecified headache type Jayant Parker MD Aug 09, 2016 16:02
--- NOTE | 2016-08-09 19:33 | PD.CONS ---
HPI Service Neurosurgery Consult Requested By Medicine Reason for Consult venous angioma, headaches Primary Care Physician Tamie Serrato MD History of Present Illness 61 yr old woke up in the middle of the night in mid June with sweats and was eventually diagnosed with MT. He had 2 stents placed and was started on Brilinta. Since then he has severe temporal headaches. They do improve with fioricet. He had no history of trauma or migraines. He was found incidentally to have a kidney mass and elevated CEA. Review of Systems Constitutional: COMPLAINS OF: Fatigue, Night Sweats Musculoskeletal: COMPLAINS OF: Muscle aches Hematologic/lymphatic: COMPLAINS OF: Bruising Neurologic: COMPLAINS OF: Headache, DENIES: Abnormal gait, Localized weakness , Paresthesias, Seizures, Speech Problems, Tremor, Poor Balance Psychiatric: DENIES: Anxiety, Confusion, Mood changes, Depression, Hallucinations, Agitation, Suicidal Ideation, Homicidal Ideation, Delusions Past Family Social History Allergies: Coded Allergies: No Known Allergies (Unverified , 08/05/16) Past Medical History Previous MT Past Surgical History Left ankle reconstruction Reported Medications Reported Meds & Active Scripts Active Efmdgmnwet-Lhthtwirgbdmj-Aczmqkzl 50-325-40 Mg Tab 1 Tab PO Q6H PRN Lortab (Hydrocodone-Acetaminophen) 5-325 Mg Tab 1 Tab PO Q6H PRN Metoprolol Tartrate 25 Mg Tab 12.5 Mg PO BID Reported Vitamin D (Ergocalciferol) 50,000 Unit Cap 50,000 Units PO Q7D Brilinta (Ticagrelor) 90 Mg Tab 90 Mg PO BID Lovastatin 10 Mg Tab 10 Mg PO DAILY Viagra (Sildenafil Citrate) 100 Mg Tab 100 Mg PO DAILY PRN Family History Father had COPD, mother of MT Social History Lives alone, retired, occ social ETOH, marijuana, recently quit tobacco Physical Exam Vital Signs Vital Signs Date Time Temp Pulse Resp B/P Pulse Ox O2 Delivery O2 Flow Rate FiO2 08/09/16 15:55 98.0 81 119/66 94 08/09/16 15:00 75 08/09/16 11:31 98.5 71 19 89/44 96 08/09/16 08:10 98.0 74 20 116/70 95 08/09/16 08:00 73 08/09/16 03:47 84 18 121/73 97 08/09/16 02:32 16 08/09/16 01:03 83 08/08/16 21:57 82 Physical Exam Alert, oriented x 3 ,EOMI, pupils 2mm, physiologic nystagmus, neck with full range of motion, No pronator drift, no dysmetria, good fine motor control in both hands Speech fluent, attention is good, Moves all extremities with good strength, No radicular numbness, Skin dry with no peripheral edema, bruising noted on the arms, Result Diagram: 08/08/1662108/08/16 06 Imaging Last Impressions Abdomen/Pelvis CT 08/08/16 0600 Signed Impressions: Service Date/Time: August 18:21 - CONCLUSION: 1. Right renal mass almost certainly renal cell carcinoma unless proven otherwise without evidence for metastatic disease. 2. Probable scar in the lingula, repeat noncontrasted CT is suggested in 6 months as a conservative follow up. Arabella Wilks MD Brain MRI 08/08/16 0000 Signed Impressions: Service Date/Time: August 09:04 - CONCLUSION: Small area of increased signal on the flare images just on the right side of the posterior genu of the corpus callosum, could be an unusual appearing stroke. I do not see any hemorrhage or enhancement in this region. Small lesion in the right cerebellar hemisphere, I suspect this is a small venous angioma. Very tiny focal area of increased signal in the left frontal region will have to be followed. Wayne Sheffield MD Chest X-Ray 08/07/16 1101 Signed Impressions: Service Date/Time: Sunday, August 07, 2016 10:59 - CONCLUSION: 1. Post surgical changes. No acute cardiopulmonary findings. Von Douglass MD Head/Brain Mag Res Venography 08/07/16 0000 Signed Impressions: Service Date/Time: Sunday, August 07, 2016 13:23 - CONCLUSION: 1. Nonvisualization of the left transverse sinus and left jugular vein. Please see above discussion. Von Douglass MD Assessment and Plan Diagnosis: (1) CVA (cerebral vascular accident) Plan: Small embolic ischemic changes seen in the right splenium of the corpus callosum should be treated with the Brillinta. He is compliant with the use of the medication. ICD Code: I63.9 (2) Intractable headache Plan: Recent changes in medications, tobacco use, appetite may be affecting the headaches. Fioricet is helpful. Plan follow up in 4-6 weeks in the office for repeat imaging in view of the elevated CEA. ICD Code: R51 Problem Qualifiers (1) CVA (cerebral vascular accident): (2) Intractable headache: Qualified Code: R51 - Chronic intractable headache, unspecified headache type Emmett Herndon Aug 09, 2016 19:33
[2016-08-09] MEDS: MIRTAZAPINE 15 MG TAB PO SCH (21:00)
[2016-08-10] MEDS: ACETAMIN 325 MG/BUTALBITAL 50 MG/CAFFEINE 40 MG TAB PO PRN ×2 (02:30→09:29)
[2016-08-10 08:42] VITALS: BP 135/70; PULSE 74; RESP 20; TEMP 96.7; O2SAT 95
[2016-08-10 09:00] VITALS: PULSE 77
--- NOTE | 2016-08-10 09:05 | HHI.PR ---
Subjective Remarks Follow-up intractable headaches/weight loss 08/08/16-patient seen and examined, report improvement of headaches, however still rated 4/10 in intensity but stated he was able to have a good night sleep last night. Afebrile 08/09/16-patient seen and examined, still complains now of intractable headache. CT abdomen with finding of right kidney mass, however patient denies any history of gross hematuria. Brother at the bedside 08/10/16-patient seen and examined, still complains of headaches patient states he also needs to have his teeth pulled out. Eating at least 90% of his tray. Clear by both Urology and neurosurgery for discharge Objective Vitals Vital Signs Date Time Temp Pulse Resp B/P Pulse Ox O2 Delivery O2 Flow Rate FiO2 08/10/16 08:42 96.7 74 20 135/70 95 08/10/16 03:51 16 08/09/16 21:40 86 08/09/16 19:33 98.3 90 18 117/65 95 08/09/16 15:55 98.0 81 119/66 94 08/09/16 15:00 75 08/09/16 11:31 98.5 71 19 89/44 96 I/O 08/09/16 08/09/16 08/09/16 08/10/16 08/10/16 08/10/16 07:00 15:00 23:00 07:00 15:00 23:00 Intake Total 2 ml Balance 2 ml Intake IV Total 2 ml # Voids 3 1 Result Diagram: 08/08/16 0622 08/08/16 0622 Imaging Last Impressions Abdomen/Pelvis CT 08/08/16 0600 Signed Impressions: Service Date/Time: August 18:21 - CONCLUSION: 1. Right renal mass almost certainly renal cell carcinoma unless proven otherwise without evidence for metastatic disease. 2. Probable scar in the lingula, repeat noncontrasted CT is suggested in 6 months as a conservative follow up. Arabella Wilks MD Brain MRI 08/08/16 0000 Signed Impressions: Service Date/Time: August 09:04 - CONCLUSION: Small area of increased signal on the flare images just on the right side of the posterior genu of the corpus callosum, could be an unusual appearing stroke. I do not see any hemorrhage or enhancement in this region. Small lesion in the right cerebellar hemisphere, I suspect this is a small venous angioma. Very tiny focal area of increased signal in the left frontal region will have to be followed. Wayne Sheffield MD Chest X-Ray 08/07/16 1101 Signed Impressions: Service Date/Time: Sunday, August 07, 2016 10:59 - CONCLUSION: 1. Post surgical changes. No acute cardiopulmonary findings. Von Douglass MD Head/Brain Mag Res Venography 08/07/16 0000 Signed Impressions: Service Date/Time: Sunday, August 07, 2016 13:23 - CONCLUSION: 1. Nonvisualization of the left transverse sinus and left jugular vein. Please see above discussion. Von Douglass MD Objective Remarks GENERAL: NAD SKIN: Warm and dry. HEAD: Normocephalic. EYES: No scleral icterus. No injection or drainage. NECK: Supple, trachea midline. No JVD or lymphadenopathy. CARDIOVASCULAR: Regular rate and rhythm without murmurs, gallops, or rubs. RESPIRATORY: Breath sounds equal bilaterally. No accessory muscle use. GASTROINTESTINAL: Abdomen soft, non-tender, nondistended. MUSCULOSKELETAL: No cyanosis, or edema. BACK: Nontender without obvious deformity. No CVA tenderness. Procedures none A/P Problem List: (1) Intractable headache ICD Code: R51 Status: Acute (2) Dizziness, nonspecific ICD Code: R42 Status: Acute (3) Weight loss ICD Code: R63.4 Status: Acute (4) Thrombosis of transverse sinus ICD Code: G08 Status: Acute (5) Renal mass, right ICD Code: N28.89 Status: Acute Assessment and Plan 61-year-old male with 1-Intractable headache: Brain MRV with finding of questionable thrombosis of the left transverse sinus, brain MRI with finding of small venous angioma for which neurosurgery was consulted and recommended follow-up outpatient. Patient has a history of positive and states he will also follow-up with dentist. Continue Fioricet 2-Dizziness: Resolved. Head CT 08/05/16 was unremarkable, brain MRV 08/07/16 for questionable finding of thrombosis of the left transverse sinus, brain MRI with finding of small venous angioma for which neurosurgery has been consulted. 3-Weight loss: Normal CA 19, AFP however CEA slightly up and CT abdomen with finding of right renal mass. HIV negative .normal TSH and free T4 . Dietitian ff and continue with calorie count and check prealbumin. 4-History of CAD, status post PCI/ANTONIA to RCA 06/18/16: Continue outpatient medications 5-Anxiety: In The face of decreased appetite and weight loss, continue low-dose Remeron 6-Incidental Right renal mass finding: CT abdomen/pelvis with finding of right renal mass which urology was consulted and recommended outpatient follow-up. Patient will need needle biopsy as part of the work-up DVT prophylaxis:B- SCDs Problem Qualifiers (1) Intractable headache: Qualified Code: R51 - Chronic intractable headache, unspecified headache type Torrey Dickens MD Aug 10, 2016 09:05
--- NOTE | 2016-08-10 09:06 | HHI.DS ---
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 states, since his last hospitalization he has not felt the same and immediately after discharge he has been complaining of dizziness however denies any trauma. He was seen in the ED on debris 12/26/16 and at a time head CT scan was done and was read negative and patient has unremarkable labs work. He was then discharged home, however returns today with the same complaints. Patient has abnormal brain MRV finding of a questionable thrombosis of the left transverse sinus He denies any suicidal ideation however states he's lost interest in multiple activities. He denies any febrile episode or recent sexual activity. CBC/BMP: 08/08/16 0622 08/08/16 0622 Significant Findings Laboratory Tests Test 08/07/16 08/07/16 08/07/16 08/08/16 11:15 12:00 19:49 02:25 Red Blood Count 4.05 MIL/MM3 (4.50-5.90) Mean Corpuscular Hemoglobin 34.9 PG (27.0-34.0) Neutrophils (%) (Auto) 76.3 % (16.0-70.0) Monocytes (%) (Auto) 8.4 % (0.0-8.0) Neutrophils # (Auto) 8.1 TH/MM3 (1.8-7.7) Prothrombin Time 11.8 SEC (9.8-11.6) Sodium Level 135 MEQ/L (136-145) Urine Ketones 80 mg/dL (NEG) Urine Mucus FEW /lpf (OCC) Prealbumin 15 MG/DL (20-40) Carcinoembryonic Antigen 50.3 NG/ML (0.2-5.0) Creatinine 0.58 MG/DL (0.60-1.30) Test 08/08/16 06:22 Red Blood Count 4.13 MIL/MM3 (4.50-5.90) Mean Corpuscular Volume 100.7 FL (80.0-100.0) Mean Corpuscular Hemoglobin 34.6 PG (27.0-34.0) Monocytes (%) (Auto) 11.5 % (0.0-8.0) Monocytes # (Auto) 1.1 TH/MM3 (0-0.9) Estimat Glomerular Filtration 87 ML/MIN (>89) Rate Aspartate Amino Transf 14 U/L (15-37) (AST/SGOT) Albumin 3.1 GM/DL (3.4-5.0) Imaging Last Impressions Abdomen/Pelvis CT 08/08/16 0600 Signed Impressions: Service Date/Time: August 18:21 - CONCLUSION: 1. Right renal mass almost certainly renal cell carcinoma unless proven otherwise without evidence for metastatic disease. 2. Probable scar in the lingula, repeat noncontrasted CT is suggested in 6 months as a conservative follow up. Arabella Wilks MD Brain MRI 08/08/16 0000 Signed Impressions: Service Date/Time: August 09:04 - CONCLUSION: Small area of increased signal on the flare images just on the right side of the posterior genu of the corpus callosum, could be an unusual appearing stroke. I do not see any hemorrhage or enhancement in this region. Small lesion in the right cerebellar hemisphere, I suspect this is a small venous angioma. Very tiny focal area of increased signal in the left frontal region will have to be followed. Wayne Sheffield MD Chest X-Ray 08/07/16 1101 Signed Impressions: Service Date/Time: Sunday, August 07, 2016 10:59 - CONCLUSION: 1. Post surgical changes. No acute cardiopulmonary findings. Von Douglass MD Head/Brain Mag Res Venography 08/07/16 0000 Signed Impressions: Service Date/Time: Sunday, August 07, 2016 13:23 - CONCLUSION: 1. Nonvisualization of the left transverse sinus and left jugular vein. Please see above discussion. Von Douglass MD PE at Discharge GENERAL: NAD SKIN: Warm and dry. HEAD: Normocephalic. EYES: No scleral icterus. No injection or drainage. NECK: Supple, trachea midline. No JVD or lymphadenopathy. CARDIOVASCULAR: Regular rate and rhythm without murmurs, gallops, or rubs. RESPIRATORY: Breath sounds equal bilaterally. No accessory muscle use. GASTROINTESTINAL: Abdomen soft, non-tender, nondistended. MUSCULOSKELETAL: No cyanosis, or edema. BACK: Nontender without obvious deformity. No CVA tenderness. Hospital Course 1-Intractable headache: Brain MRV with finding of questionable thrombosis of the left transverse sinus, brain MRI with finding of small venous angioma for which neurosurgery was consulted and recommended follow-up outpatient. Patient has a history of positive and states he will also follow-up with dentist. Continue Fioricet 2-Dizziness: Resolved. Head CT 08/05/16 was unremarkable, brain MRV 08/07/16 for questionable finding of thrombosis of the left transverse sinus, brain MRI with finding of small venous angioma for which neurosurgery has been consulted. 3-Weight loss: Normal CA 19, AFP however CEA slightly up and CT abdomen with finding of right renal mass. HIV negative .normal TSH and free T4 . Dietitian ff and continue with calorie count and check prealbumin. 4-History of CAD, status post PCI/ANTONIA to RCA 06/18/16: Continue outpatient medications 5-Anxiety: In The face of decreased appetite and weight loss, continue low-dose Remeron 6-Incidental Right renal mass finding: CT abdomen/pelvis with finding of right renal mass which urology was consulted and recommended outpatient follow-up. Patient will need needle biopsy as part of the work-up DVT prophylaxis:B- SCDs Pt Condition on Discharge: Fair Discharge Disposition: Discharge Home Discharge Time: <= 30 minutes Discharge Instructions DIET: Follow Instructions for: Heart Healthy Diet Activities you can perform: Regular-No Restrictions Follow up Referrals: Neurosurgery @ [facility] Follow-up - 1 Week Urology - 4 Weeks New Medications: Yabpyplilq-Iuuxvmbqrjhzp-Gdtzgpzm (Ubvxrtjzxd-Hpwztrxibaerp-Ehquyvsw) 50-325-40 Mg Tab 1 TAB PO Q6H PRN Headache #20 TAB Mirtazapine (Mirtazapine) 15 Mg Tab 15 MG PO HS Control Mood Swing #30 TAB Continued Medications: Ergocalciferol (Vitamin D) 50,000 Unit Cap 65722 UNITS PO Q7D Nutritional Supplement #30 Ref 0 CAP Lovastatin (Lovastatin) 10 Mg Tab 10 MG PO DAILY Cholesterol Management #30 Ref 0 TAB Metoprolol Tartrate (Metoprolol Tartrate) 25 Mg Tab 12.5 MG PO BID Blood Pressure Management #60 TAB Sildenafil (Viagra) 100 Mg Tab 100 MG PO DAILY PRN ERECTILE DYSFUNCTION Ref 0 TAB Ticagrelor (Brilinta) 90 Mg Tab 90 MG PO BID Blood Clot Prevention #60 Ref 0 TAB Discontinued Medications: Hydrocodone-Acetaminophen (Lortab) 5-325 Mg Tab 1 TAB PO Q6H PRN PAIN #12 Ref 0 TAB Torrey Dickens MD Aug 10, 2016 09:06
[2016-08-10] MEDS: PRAVASTATIN SOD 10 MG TAB PO SCH (09:29)
[2016-08-10] MEDS: TICAGRELOR 90 MG TAB PO SCH (09:30)
[2016-08-10] MEDS: METOPROLOL TARTRATE 25 MG TAB PO SCH (09:30)
[2016-08-10] MEDS: SODIUM CHLORIDE 0.9% FLUSH 5 ML FLUSH FLUSH SCH (09:31)
== END 2016-08-10 12:45 | disposition home or self-care (01) | DRG 91 ==
LOC: NEPC 10:17 → NEDH 14:59 → NEPFCDU 17:57 → OBSVTOIN 08-09 10:45
PROVIDERS: ADMIT Hospitalist; ATTEND Hospitalist
DX: D18.02 Hemangioma of intracranial structures (principal); G08 Intracranial and intraspinal phlebitis and thrombophlebitis; I50.22 Chronic systolic (congestive) heart failure; R42 Dizziness and giddiness; R63.0 Anorexia; R97.0 Elevated carcinoembryonic antigen [CEA]; R63.4 Abnormal weight loss; N28.89 Other specified disorders of kidney and ureter; I25.2 Old myocardial infarction; I25.10 Atherosclerotic heart disease of native coronary artery without angina pectoris; E78.00 Pure hypercholesterolemia, unspecified; F17.210 Nicotine dependence, cigarettes, uncomplicated; F41.9 Anxiety disorder, unspecified; E78.5 Hyperlipidemia, unspecified; I10 Essential (primary) hypertension; F12.90 Cannabis use, unspecified, uncomplicated; Z96.662 Presence of left artificial ankle joint; Z95.5 Presence of coronary angioplasty implant and graft
CPT/HCPCS: 70546; 70553; 71010; 74177; 80048; 80053; 81001; 82105; 82378; 83615; 83735; 84134; 84439; 84443; 84484; 85025; 85610; 86301; 86703; 93005; 96361; 96374; 96375; A9579; G0378; G8987-GP; G8988-GP; J2060; J2270; J2405; J2765; J7030; Q9963; Q9967